=== PATIENT | male | born 1965 | race Caucasian/White ===

== ENCOUNTER → 2019-09-17 | Outpatient (CLI) | payer BC, SELFPAY | PROVIDERS: Visit Provider Emergency Medicine | DX: R51 Headache (principal); G40.909 Epilepsy, unspecified, not intractable, without status epilepticus | CPT/HCPCS: 95816 ==

== ENCOUNTER 2020-01-17 06:57 | Outpatient (CLI) | payer BC, SELFPAY ==
[2020-01-17 08:44] LABS: Hemoglobin A1C 5.9 % (<5.7)
[2020-01-17 08:58] LABS: Alanine Aminotransferase 37 U/L (4-50); Albumin Level 4.1 g/dL (3.5-5.1); Alkaline Phosphatase 65 U/L (38-126); Aspartate Amino Transferase 27 U/L (17-59); Bilirubin,Total 0.4 mg/dL (0.2-1.3); Blood Urea Nitrogen 22 mg/dL (9-20); Calcium 9.1 mg/dL (8.4-10.2); Carbon Dioxide 30 mmol/L (22-30); Chloride 101 mmol/L (98-107); Estimated Glomerular Filt Rate > 60; Glucose 103 mg/dL (75-110); Potassium 4.2 mmol/L (3.4-5.0); Sodium 142 mmol/L (137-145)
[2020-01-17 09:25] LABS: Free T4 Free Thyroxine 1.08 ng/mL (0.78-2.19)
[2020-01-21 04:49] LABS: Insulin Level Total 4.2 uIU/mL (<=19.6); Thyroid Peroxidase Antibodies <1 IU/mL (<9)
[2020-01-22 13:08] LABS: Triiodothyronine T3 Free 2.7 pg/mL (2.3-4.2)
== END 2020-01-17 06:58 | disposition home or self-care (01) ==
PROVIDERS: PCP Emergency Medicine; Visit Provider Internal Medicine Endocrinology, Diabetes & Metabolism
DX: R73.01 Impaired fasting glucose (principal); R53.83 Other fatigue
CPT/HCPCS: 36415; 80053; 83036; 83525; 84439; 84443; 84481; 86376

== ENCOUNTER 2020-02-25 07:35 | Outpatient (CLI) | payer BC, SELFPAY ==
--- NOTE | 2020-02-25 | ECHO_ITS ---
Patient Info Name: Eduar Richardson Age: 55 years : 1965 Gender: Male Ht: 72 in Wt: 190 lbs BSA: 2.10 m2 HR: 62 bpm BP: 116 / 75 mmHg Technical Quality: Good Exam Date: 02/25/2020 7:59 AM Exam Location: [facility] Patient Status: Outpatient Admit Date: 02/25/2020 Staff Ordering Physician: Ivan Childress MD Construction Secretary: Paolo Martinez RDCS, RT Attending Provider: Ivan Childress MD Referring Physician: Monroe VASQUEZ; Exam Type: CA echo doppler color flow Study Info Indications G45.9 - Transient cerebral ischemic attack, unspecified Complete two-dimensional, color flow and Doppler transthoracic echocardiogram is performed. Summary 1. Left ventricular chamber dimension is normal. 2. Left ventricular systolic function is normal, estimated at 60-65%. 3. The left ventricular diastolic function is normal. 4. E/e' 5 is not elevated. 5. Global longitudinal strain is normal at -18.4%. 6. There is mild mitral valve regurgitation. 7. There is trace tricuspid valve regurgitation. 8. No pulmonary hypertension, estimated pulmonary arterial systolic pressure is 28 mmHg. Left Ventricle E/e' 5 is not elevated. Global longitudinal strain is normal at -18.4%. Left ventricular chamber dimension is normal. Left ventricular systolic function is normal, estimated at 60-65%. The left ventricular diastolic function is normal. Right Ventricle Right ventricular chamber dimension is normal. Right ventricular systolic function is normal. Left Atria Left atrial chamber dimension is normal. Right Atria Right atrial chamber dimension is normal. Aortic Valve The aortic valve is trileaflet. There is no aortic valve stenosis. There is no aortic valve regurgitation. Pulmonic Valve There is no pulmonic regurgitation. Mitral Valve There is no mitral valve stenosis. There is mild mitral valve regurgitation. Tricuspid Valve There is trace tricuspid valve regurgitation. No pulmonary hypertension, estimated pulmonary arterial systolic pressure is 28 mmHg. Pericardium/Pleural There is no pericardial effusion. Inferior Vena Cava Normal inferior vena cava with >50% collapse upon inspiration consistent with normal right atrial pressure, 5 mmHg. Aorta The aortic root size at the sinus of Valsalva is normal. Left Ventricular Outflow Tract Name Value Normal LVOT 2D LVOT Diameter 2.1 cm LVOT Doppler LVOT Peak Gradient 4 mmHg LVOT Mean Gradient 2 mmHg LVOT VTI 21 cm LVOT VTI/AV VTI Ratio 0.9 LVOT Stroke Volume 74 ml LVOT CO 4.2 l/min LVOT CI 2.0 l/min/m2 Pulmonic Valve Name Value Normal PV Doppler PV Peak Gradient 2 mm
== END 2020-02-25 07:36 | disposition home or self-care (01) ==
LOC: ANHCARD 07:37
PROVIDERS: PCP Emergency Medicine; Visit Provider Emergency Medicine
DX: G45.9 Transient cerebral ischemic attack, unspecified (principal)
CPT/HCPCS: 93306

== ENCOUNTER → 2020-03-03 09:05 | Outpatient (CLI) | payer BC, SELFPAY ==
--- NOTE | ~2020-03-03 | CT_ITS ---
EXAMINATION: CTA brain carotid EXAM DATE: 03/03/2020 10:16 INDICATION: Episode of memory loss, right arm paresthesia continued for about an hour, transient. Carlos rred vision during episode. TECHNIQUE: Noncontrast head CT. Spiral CTA of the carotid arteries was performed with intravenous i njection 100 cc of Omnipaque 350. Axial, coronal, sagittal reformatted images reviewed. Additional r eformatted images created on dedicated 3-D workstation. NASCET comparable standard used to assess th e degree of arterial stenosis. Spiral CT angiogram cerebral arteries performed with the same intrave nous injection of contrast. Source images of the brain CTA transferred to dedicated workstation for 3 -D rotational image creation. Coronal, sagittal maximum intensity pixel images also reviewed. The d ose-length product (DLP) for this examination was 1245.70 mGy-cm. The exposure was tailored accordi ng to patient size, and iterative reconstruction (ASIR) was used as additional dose reduction techniq ue. Correlation is made to brain MRI 09/15/2019. FINDINGS: The common carotid and internal carotid arteries are normal, no plaque or stenosis. The rig ht vertebral artery is dominant. There is no carotid or vertebral basilar arterial dissection or fib romuscular dysplasia. There are no cerebral artery aneurysms. There is symmetric cerebral artery arbo rization. The sagittal, transverse and sigmoid sinuses enhance normally, no venous sinus thrombosis. Internal cerebral veins also enhance normally. There is no acute intraparenchymal hemorrhage. No evidence of intraparenchymal brain mass lesion. N o evidence of acute infarction. There is no mass effect or midline shift. There is no obstructive hyd rocephalus suspected. There are no extra-axial collections. There are no calvarial acute fractures. IMPRESSION: 1. No carotid stenosis or acute findings. Reviewed, dictated and finalized at location B.
[2020-03-03 09:28] LABS: Estimated Glomerular Filt Rate > 60
== END ==
PROVIDERS: PCP Emergency Medicine; Visit Provider Psychiatry & Neurology Neurology
DX: G45.9 Transient cerebral ischemic attack, unspecified (principal)
CPT/HCPCS: 36415; 70496; 70498; Q9967

== ENCOUNTER 2020-04-23 14:28 | Outpatient (CLI) | payer BC, SELFPAY ==
[2020-04-25 23:59] LABS: Arsenic, Blood <3 mcg/L (<23); Lead, Blood 3 mcg/dL (<5); Mercury, Blood <4 mcg/L (<=10)
[2020-04-28 08:33] LABS: Collection Sample Venous
== END 2020-04-23 14:29 | disposition home or self-care (01) ==
PROVIDERS: PCP Emergency Medicine
DX: Z57.5 Occupational exposure to toxic agents in other industries (principal)
CPT/HCPCS: 36415; 82175; 83655; 83825

== ENCOUNTER 2020-08-12 06:13 | Emergency (ER) | payer BC, SELFPAY ==
--- NOTE | ~2020-08-12 | CT_ITS ---
EXAMINATION: CT brain wo con EXAM DATE: 08/12/2020 06:35 INDICATION: Hand numbness. Headache. Blurry vision. TECHNIQUE: Spiral CT of the head was performed without contrast. Axial, coronal and sagittal images were reviewed. The dose-length product (DLP) for this examination was 605.33 mGy-cm. The exposure w as tailored according to patient size, and iterative reconstruction (ASIR) was used as additional dos e reduction technique. Comparison is made to prior examination from 03/03/2020. FINDINGS: There is no acute intraparenchymal hemorrhage. No evidence of intraparenchymal brain mass lesion. No evidence of acute infarction. There is no mass effect or midline shift. The ventricles are normal in size. There are no extra-axial collections. There are no acute calvarial fractures. T he orbits are unremarkable. Soft tissue is unremarkable. The visualized sinuses and mastoid air nora ls are well aerated. There is no significant interval change. IMPRESSION: 1. No acute intracranial findings. Reviewed, dictated and finalized at location A.
--- NOTE | ~2020-08-12 | XR_ITS ---
EXAMINATION: XR chest 2V EXAM DATE: 08/12/2020 06:38 INDICATION: Stroke protocol. Right hand numbness, left foot numbness. TECHNIQUE: Frontal and lateral projections of the chest obtained and reviewed. Comparison is made to prior examination from 06/20/2010. FINDINGS: The lungs are clear. There are no pleural effusions. The cardiomediastinal silhouette is within normal limits. There is no pneumothorax suspected. The bones and soft tissues are unremarkab le. IMPRESSION: No acute cardiopulmonary findings. Reviewed, dictated and finalized at location A.
[2020-08-12 06:16] VITALS: BP 138/88; PULSE 81; RESP 20; TEMP 36.6; O2SAT 98
--- NOTE | 2020-08-12 06:18 | ECG_ITS ---
Measurements Intervals [place] Rate: 71 P: 33 FL: 162 QRS: 18 QRSD: 94 T: 6 QT: 379 QTc: 414 Interpretive Statements SINUS RHYTHM NORMAL ECG Electronically Signed On 08-12-2020 9:58:39 CDT by Jairo Guillory D.O.
--- NOTE | 2020-08-12 06:18 | ED.NEUROSD ---
HPI - Neuro Symptoms/Deficit General Chief Complaint: Neuro Symptoms/Deficit <Rachel Batista MD - Last Filed: 08/12/20 07:21> Stated Complaint: left foot and right hand numbness <Rachel Batista MD - Last Filed: 08/12/20 07:21> Time Seen by Provider: 08/12/20 06:18 <Rachel Batista MD - Last Filed: 08/12/20 07:21> Source: patient <Rachel Batista MD - Last Filed: 08/12/20 07:21> Mode of arrival: ambulatory <Rachel Batista MD - Last Filed: 08/12/20 07:21> Limitations: no limitations <Rachel Batista MD - Last Filed: 08/12/20 07:21> History of Present Illness HPI Narrative: Patient is a 55-year-old male with a history of paresthesia who presents for evaluation of mild frontal headache and concurrent right hand tingling and left foot tingling. Patient states symptoms began approximately 2 hours ago. Patient awakened and had 2 cups of coffee, then began to feel tingling in his right hand and left foot. Patient denies any weakness in these extremities. No difficulty walking. No difficulty with speech, no facial droop or drooling. Patient states in the past he has been diagnosed with paresthesia and has had negative work-ups for stroke with similar presenting symptoms. Patient has followed once with a neurologist and was told that there was nothing wrong. Patient denies any nausea or vomiting. No dizziness or lightheadedness. No chest pain or shortness of breath. <Rachel Batista MD - Last Filed: 08/12/20 07:21> Related Data Allergies/Adverse Reactions: Allergies Allergy/AdvReac Type Severity Reaction Status Date / Time No Known Allergies Allergy Unknown Verified 06/28/10 08:14 <Rachel Batista MD - Last Filed: 08/12/20 07:21> Review of Systems Review of Systems: Narrative: CONSTITUTIONAL: Denies fever, chills, or sweats. EYES: Denies current visual changes, redness, or discharge. ENT: Denies rhinorrhea, congestion CARDIOVASCULAR: Denies chest pain RESPIRATORY: Denies cough or dyspnea. GASTROINTESTINAL: Denies abdominal pain, nausea, vomiting, or diarrhea. GENITOURINARY: Denies dysuria or hematuria. SKIN: Denies rash or itching. MUSCULOSKELETAL: Denies back pain, joint pain, or myalgia. NEUROLOGIC: Denies headache, weakness, reports tingling in his right hand and left foot <Rachel Batista MD - Last Filed: 08/12/20 07:21> [facility] Past Medical History Medical History: Medical History H/O testicular mass Paresthesia <Rachel Batista MD - Last Filed: 08/12/20 07:21> Surgical History Surgical History: Surgical History (Updated 08/12/20 @ 06:32 by Rachel Batista MD) H/O inguinal hernia repair <Rachel Batista MD - Last Filed: 08/12/20 07:21> Social History Social History: Social History (Updated 08/12/20 @ 06:33 by Rahcel Batista MD) Smoking status: Current some day smoker Tobacco type: cigars Alcohol intake: current Alcohol use details: Social Living arrangements: with family Gender identity (if verbalized by the patient): Male <Rachel Batista MD - Last Filed: 08/12/20 07:21> Exam Narrative: Exam Narrative: GENERAL: Awake, alert, conversant HEAD: Normocephalic, atraumatic. EYES: PERRLA and EOMI. ENT: Nares clear, no rhinorrhea or epistaxis. Mucous membranes moist. NECK: Supple. CHEST: No respiratory distress, breathing even and non labored HEART: Regular rate, sinus rhythm ABDOMEN:Non distended, non tender EXTREMITIES: Normal range of motion. No edema. SKIN: Warm, dry, no rash. NEURO:No focal deficits. Alert and oriented x3. Finger to nose intact bilaterally. EOMs intact without nystagmus. No facial droop/asymmetry noted bilaterally. Grimace intact. Intact sensation in face. Hearing intact bilaterally. Shoulder shrug intact. Strength 5/5 bilateral upper extremities. Strength 5/5 bilateral lower extremities. Reflexes 2+ patellar. Heel to perez inta
[2020-08-12 06:42] VITALS: BP 130/81; PULSE 77; RESP 21; O2SAT 98
[2020-08-12] MEDS: ACETAMINOPHEN 500 MG TABLET 1000 MG PO (06:47)
[2020-08-12] MEDS: SODIUM CHLORIDE 0.9% IV 500 ML 999 ML IV CONT (06:47)
[2020-08-12 07:03] LABS: Add Urine Microscopic? NO; Appearance Urine Clear (Clear); Bilirubin Urine Negative (Negative); Blood Urine Negative (Negative); Color Urine Straw (Yellow); Glucose Urine UA Negative (Negative); Ketones Urine Negative (Negative); Leukocyte Esterase Ur Negative LEU/UL (Negative); Nitrate Urine Negative (Negative); Protein Urine Negative (Negative); Specific Grav Ur 1.017 (1.001-1.035); Urobilinogen Urine Negative mg/dL (<2.0)
[2020-08-12 07:12] LABS: Basophils Absolute Auto 0.1 K/mm3 (0.0-0.1); Basophils Percent Auto 0.8 % (0.2-1.2); Eosinophils Absolute Auto 0.2 K/mm3 (0-0.3); Eosinophils Percent Auto 2.4 % (0-4.4); Hemoglobin 14.5 g/dL (14.0-18.0); Immature Granulocyte Absolute 0.03 K/mm3 (0.00-0.031); Immature Granulocyte Percent A 0.5 % (0-0.5); Lymphocytes Absolute Auto 1.57 K/mm3 (0.9-3.2); Lymphocytes Percent Auto 24.7 % (18.3-44.2); Mean Corpuscular HGB Conc 32.2 g/dl (32-36); Mean Corpuscular Hemoglobin 30.2 pg (26-34); Mean Corpuscular Volume 93.8 fl (80-100); Mean Platelet Volume 11.7 fl (7.4-10.4); Monocytes Absolute Auto 0.4 K/mm3 (0.1-0.6); Monocytes Percent Auto 6.6 % (2.6-8.5); Neutrophils Absolute Auto 4.1 K/mm3 (1.3-6.7); Platelet Count Result 281 k/mm3 (150-375); Red Cell Distribution Width 13.1 % (11.5-14.5); White Blood Count 6.4 K/mm3 (4.5-10.0)
[2020-08-12 07:25] LABS: Anion Gap 5 mmol/L (8-16); Blood Urea Nitrogen 21 mg/dL (9-20); Calcium 9.3 mg/dL (8.4-10.2); Carbon Dioxide 30 mmol/L (22-30); Chloride 102 mmol/L (98-107); Estimated CRCL calculation 73 ml/min; Estimated Glomerular Filt Rate > 60; Glucose 110 mg/dL (75-110); Potassium 4.1 mmol/L (3.4-5.0); Sodium 137 mmol/L (137-145)
[2020-08-12 07:31] VITALS: BP 129/86; PULSE 70; RESP 18; O2SAT 95
[2020-08-12 07:35] LABS: INR 0.9; Prothrombin Time 12.1 Seconds (11.1-14.7)
[2020-08-12 07:36] LABS: Troponin I < 0.012 ng/mL (0.000-0.034)
[2020-08-12 07:43] LABS: Partial Thromboplastin Time 27.8 SECONDS (22.3-36.8)
[2020-08-12 08:01] VITALS: BP 130/84; PULSE 85; RESP 20; O2SAT 99
== END 2020-08-12 08:04 | disposition home or self-care (01) ==
PROVIDERS: Emergency Provider Emergency Medicine; PCP Emergency Medicine
DX: R20.2 Paresthesia of skin (principal); F17.290 Nicotine dependence, other tobacco product, uncomplicated
CPT/HCPCS: 36415; 70450; 71046; 80048; 81003; 82948; 84484; 85025; 85610; 85730; 93005; 96360; 99284; A9270; J7040

== ENCOUNTER 2021-04-29 06:53 | Outpatient (CLI) | payer BC, SELFPAY ==
[2021-04-29 07:43] LABS: Basophils Absolute Auto 0.1 K/mm3 (0.0-0.1); Basophils Percent Auto 0.7 % (0.2-1.2); Eosinophils Absolute Auto 0.2 K/mm3 (0-0.3); Eosinophils Percent Auto 2.5 % (0-4.4); Hematocrit 43.3 % (42.0-52.0); Hemoglobin 14.1 g/dL (14.0-18.0); Immature Granulocyte Absolute 0.03 K/mm3 (0.00-0.031); Immature Granulocyte Percent A 0.4 % (0-0.5); Lymphocytes Absolute Auto 1.75 K/mm3 (0.9-3.2); Lymphocytes Percent Auto 25.9 % (18.3-44.2); Mean Corpuscular HGB Conc 32.6 g/dl (32-36); Mean Corpuscular Volume 92.1 fl (80-100); Mean Platelet Volume 10.9 fl (7.4-10.4); Monocytes Absolute Auto 0.5 K/mm3 (0.1-0.6); Monocytes Percent Auto 7.7 % (2.6-8.5); Neutrophils Absolute Auto 4.2 K/mm3 (1.3-6.7); Neutrophils Percent Auto 62.8 % (45.5-73.1); Platelet Count Result 274 k/mm3 (150-375); Red Cell Distribution Width 13.2 % (11.5-14.5); White Blood Count 6.8 K/mm3 (4.5-10.0)
[2021-04-29 07:49] LABS: Alanine Aminotransferase 23 U/L (4-50); Albumin Level 3.9 g/dL (3.5-5.1); Alkaline Phosphatase 51 U/L (38-126); Anion Gap 7 mmol/L (8-16); Aspartate Amino Transferase 24 U/L (17-59); Bilirubin,Total 0.3 mg/dL (0.2-1.3); Blood Urea Nitrogen 22 mg/dL (9-20); Calcium 9.4 mg/dL (8.4-10.2); Carbon Dioxide 29 mmol/L (22-30); Chloride 105 mmol/L (98-107); Cholesterol 169 mg/dL (0-200); Estimated Glomerular Filt Rate > 60; Glucose 106 mg/dL (75-110); HDL Direct 45 mg/dL; Magnesium 1.8 mg/dL (1.6-2.3); Phosphorus 3.3 mg/dL (2.5-4.5); Potassium 4.2 mmol/L (3.4-5.0); Sodium 141 mmol/L (137-145); Triglycerides 61 mg/dL (<150)
[2021-04-29 08:00] LABS: LDL Cholesterol Direct 78 mg/dL
[2021-04-29 09:02] LABS: Add Urine Microscopic? NO; Appearance Urine Clear (Clear); Bilirubin Urine Negative (Negative); Blood Urine Negative (Negative); Color Urine Yellow (Yellow); Glucose Urine UA Negative (Negative); Ketones Urine Negative (Negative); Leukocyte Esterase Ur Negative LEU/UL (Negative); Nitrate Urine Negative (Negative); Protein Urine Negative (Negative); Specific Grav Ur 1.024 (1.001-1.035); Urobilinogen Urine Negative mg/dL (<2.0)
== END 2021-04-29 06:54 | disposition home or self-care (01) ==
PROVIDERS: PCP Emergency Medicine; Visit Provider Emergency Medicine
DX: F41.1 Generalized anxiety disorder (principal); G45.9 Transient cerebral ischemic attack, unspecified; K22.70 Barrett's esophagus without dysplasia; R97.20 Elevated prostate specific antigen [PSA]
CPT/HCPCS: 36415; 80061; 80069; 80076; 81003; 82607; 82746; 83735; 84153; 84443; 85025

== ENCOUNTER → 2022-08-16 15:13 | Outpatient (CLI) | payer BC, SELFPAY ==
--- NOTE | ~2022-08-16 | CT_ITS ---
EXAMINATION: CT sinus wo con DATE: 08/16/2022 15:41 INDICATION: Chronic sinusitis TECHNIQUE: Computed tomography (CT) of the paranasal sinuses was performed without intravenous contra st. The dose-length product was 288.85 mGy-cm. Automated exposure control and iterative reconstructio n technique were employed. COMPARISON: No prior studies for comparison. FINDINGS: There is extensive mucosal thickening of the sinuses including the frontal, ethmoid, spheno id and maxillary sinuses. There is an air-fluid level in the right maxillary sinus. There are bilater al mastoid effusions. There is leftward nasal septal deviation. Ostiomeatal units are occluded by sof t tissue. There is curvature of the nasal septum. IMPRESSION: 1. Pansinusitis with air-fluid level in the right maxillary sinus. Reviewed, dictated and finalized at location A.
== END ==
PROVIDERS: PCP Emergency Medicine; Visit Provider Emergency Medicine
DX: J32.4 Chronic pansinusitis (principal)
CPT/HCPCS: 70486

== ENCOUNTER 2023-01-13 06:46 | Outpatient (CLI) | payer BC, SELFPAY ==
[2023-01-13 07:29] LABS: Cholesterol 190 mg/dL (0-200); HDL Direct 47 mg/dL; Triglycerides 60 mg/dL (<150)
[2023-01-13 07:40] LABS: Hemoglobin A1C 5.7 % (<5.7); LDL Cholesterol Direct 106 mg/dL
[2023-01-13 07:41] LABS: Parathyroid Intact 40.9 pg/mL (7.5-53.5)
[2023-01-13 08:24] LABS: Free T4 Free Thyroxine 1.17 ng/mL (0.78-2.19)
[2023-01-16 13:23] LABS: Insulin Level Total 3.7 uIU/mL (<=19.6)
== END 2023-01-13 06:47 | disposition home or self-care (01) ==
PROVIDERS: PCP Emergency Medicine; Visit Provider Internal Medicine Endocrinology, Diabetes & Metabolism
DX: R73.03 Prediabetes (principal); Z13.220 Encounter for screening for lipoid disorders
CPT/HCPCS: 36415; 80061; 83036; 83525; 83970; 84439; 84443

== ENCOUNTER 2023-06-01 06:54 | Outpatient (CLI) | payer BC, SELFPAY ==
[2023-06-01 07:24] LABS: Basophils Absolute Auto 0.1 K/mm3 (0.0-0.1); Basophils Percent Auto 1.2 % (0.2-1.2); Eosinophils Absolute Auto 0.4 K/mm3 (0-0.3); Eosinophils Percent Auto 6.1 % (0-4.4); Hemoglobin 13.1 g/dL (14.0-18.0); Immature Granulocyte Absolute 0.01 K/mm3 (0.00-0.031); Immature Granulocyte Percent A 0.1 % (0-0.5); Lymphocytes Absolute Auto 1.64 K/mm3 (0.9-3.2); Lymphocytes Percent Auto 24.5 % (18.3-44.2); Mean Corpuscular Hemoglobin 29.8 pg (26-34); Mean Corpuscular Volume 93.2 fl (80-100); Mean Platelet Volume 10.8 fl (7.4-10.4); Monocytes Absolute Auto 0.5 K/mm3 (0.1-0.6); Neutrophils Absolute Auto 4.1 K/mm3 (1.3-6.7); Neutrophils Percent Auto 61.1 % (45.5-73.1); Platelet Count Result 271 k/mm3 (150-375); Red Cell Distribution Width 13.7 % (11.5-14.5); White Blood Count 6.7 K/mm3 (4.5-10.0)
[2023-06-01 07:34] LABS: Alanine Aminotransferase 25 U/L (6-50); Albumin Level 3.9 g/dL (3.5-5.1); Alkaline Phosphatase 55 U/L (38-126); Anion Gap 4 mmol/L (8-16); Aspartate Amino Transferase 25 U/L (17-59); Bilirubin,Total 0.3 mg/dL (0.2-1.3); Blood Urea Nitrogen 26 mg/dL (9-20); Calcium 8.7 mg/dL (8.4-10.2); Carbon Dioxide 29 mmol/L (22-30); Chloride 104 mmol/L (98-107); Cholesterol 177 mg/dL (0-200); Estimated Glomerular Filt Rate > 60; Glucose 114 mg/dL (65-110); HDL Direct 44 mg/dL; Phosphorus 3.2 mg/dL (2.5-4.5); Potassium 4.2 mmol/L (3.4-5.0); Sodium 137 mmol/L (137-145); Triglycerides 66 mg/dL (<150)
[2023-06-01 07:45] LABS: LDL Cholesterol Direct 99 mg/dL
[2023-06-06 07:14] LABS: Alphahydroxymidazolam NEGATIVE ng/mL (<50); Alphahydroxytriazolam NEGATIVE ng/mL (<50); Amphetamines NEGATIVE ng/mL (<500); Barbiturates NEGATIVE ng/mL (<300); Benzodiazepines POSITIVE ng/mL (<100); Cocaine Metabolite NEGATIVE ng/mL (<100); Codeine NEGATIVE ng/mL (<50); Hydrocodone 170 ng/mL (<50); Hydromorphone 80 ng/mL (<50); Hydroxyethylflurazepam NEGATIVE ng/mL (<50); Lorazepam NEGATIVE ng/mL (<50); Marijuana Metabolite 17 ng/mL (<5); Methadone Metabolite NEGATIVE ng/mL (<100); Morphine NEGATIVE ng/mL (<50); Norhydrocodone 310 ng/mL (<50); Opiates POSITIVE ng/mL (<100); Oxidant NEGATIVE mcg/mL (<200); Temazepam NEGATIVE ng/mL (<50); pH 5.5 (4.5-9.0)
== END 2023-06-01 06:55 | disposition home or self-care (01) ==
PROVIDERS: PCP Emergency Medicine; Visit Provider Emergency Medicine
DX: F41.1 Generalized anxiety disorder (principal); G89.4 Chronic pain syndrome; J32.9 Chronic sinusitis, unspecified; K22.70 Barrett's esophagus without dysplasia; R97.20 Elevated prostate specific antigen [PSA]; Z79.899 Other long term (current) drug therapy; Z00.01 Encounter for general adult medical examination with abnormal findings
CPT/HCPCS: 36415; 80061; 80069; 80076; 80299; 84443; 85025

== ENCOUNTER 2023-06-16 07:17 | Outpatient (CLI) | payer BC, SELFPAY ==
[2023-06-16 09:00] LABS: Glucose 100 mg/dL (65-110)
[2023-06-16 09:09] LABS: Iron 126 ug/dL (49-181)
[2023-06-16 09:17] LABS: Hematocrit 42.9 % (42.0-52.0); Hemoglobin 13.8 g/dL (14.0-18.0); Mean Corpuscular HGB Conc 32.2 g/dl (32-36); Mean Corpuscular Hemoglobin 29.9 pg (26-34); Mean Corpuscular Volume 92.9 fl (80-100); Mean Platelet Volume 11.9 fl (7.4-10.4); Platelet Count Result 273 k/mm3 (150-375); Red Blood Count 4.62 M/mm3 (4.6-6.20); Red Cell Distribution Width 13.5 % (11.5-14.5); White Blood Count 6.4 K/mm3 (4.5-10.0)
[2023-06-16 09:18] LABS: Percent Iron Saturation 32 % (20-50)
[2023-06-16 09:53] LABS: Appearance Urine Clear (Clear); Bilirubin Urine Negative (Negative); Blood Urine Negative (Negative); Color Urine Yellow (Yellow); Glucose Urine UA Negative (Negative); Ketones Urine Negative (Negative); Leukocyte Esterase Ur Negative LEU/UL (Negative); Nitrate Urine Negative (Negative); Protein Urine Negative (Negative); Specific Grav Ur 1.015 (1.001-1.035); Urobilinogen Urine 0.2 mg/dL (<2.0); pH Urine 5.5 (5.0-9.0)
[2023-06-16 10:07] LABS: Folic Acid 8.8 ng/mL (2.76->20)
[2023-06-16 11:10] LABS: Hemoglobin A1C 5.7 % (<5.7)
[2023-06-16 12:10] LABS: Add Urine Microscopic? NO
== END 2023-06-16 07:18 | disposition home or self-care (01) ==
PROVIDERS: PCP Emergency Medicine; Visit Provider Emergency Medicine
DX: D64.9 Anemia, unspecified (principal); R73.9 Hyperglycemia, unspecified; Z79.899 Other long term (current) drug therapy
CPT/HCPCS: 36415; 81003; 82607; 82728; 82746; 82947; 83036; 83540; 83550; 83735; 85027

== ENCOUNTER 2023-08-10 07:37 | Outpatient (CLI) | payer BC, SELFPAY ==
[2023-08-10 08:36] LABS: Hemoglobin A1C 5.6 % (<5.7)
[2023-08-10 09:01] LABS: Free T4 Free Thyroxine 1.25 ng/mL (0.78-2.19)
[2023-08-10 09:31] LABS: Folic Acid 12.9 ng/mL (2.76->20); Vitamin B12 > 1000.0 pg/mL (239-931)
[2023-08-14 15:43] LABS: Insulin Level Total 2.7 uIU/mL (<=19.6)
== END 2023-08-10 07:38 | disposition home or self-care (01) ==
LOC: ANHLAB 07:39
PROVIDERS: PCP Emergency Medicine; Visit Provider Internal Medicine Endocrinology, Diabetes & Metabolism
DX: R73.03 Prediabetes (principal); E53.8 Deficiency of other specified B group vitamins
CPT/HCPCS: 36415; 82607; 82746; 83036; 83525; 84439; 84443

== ENCOUNTER 2024-12-04 07:14 | Outpatient (CLI) | payer BC, SELFPAY ==
[2024-12-04 07:42] LABS: Basophils Absolute Auto 0.1 K/mm3 (0.0-0.1); Basophils Percent Auto 0.9 % (0.2-1.2); Eosinophils Absolute Auto 0.3 K/mm3 (0-0.3); Eosinophils Percent Auto 3.4 % (0-4.4); Hematocrit 40.5 % (42.0-52.0); Hemoglobin 12.5 g/dL (14.0-18.0); Immature Granulocyte Absolute 0.02 K/mm3 (0.00-0.031); Immature Granulocyte Percent A 0.3 % (0-0.5); Lymphocytes Absolute Auto 1.88 K/mm3 (0.9-3.2); Mean Corpuscular HGB Conc 30.9 g/dl (32-36); Mean Corpuscular Hemoglobin 27.6 pg (26-34); Mean Corpuscular Volume 89.4 fl (80-100); Mean Platelet Volume 10.6 fl (7.4-10.4); Monocytes Absolute Auto 0.5 K/mm3 (0.1-0.6); Monocytes Percent Auto 6.6 % (2.6-8.5); Neutrophils Absolute Auto 5.1 K/mm3 (1.3-6.7); Neutrophils Percent Auto 64.8 % (45.5-73.1); Platelet Count Result 310 k/mm3 (150-375); Red Blood Count 4.53 M/mm3 (4.6-6.20); Red Cell Distribution Width 13.9 % (11.5-14.5); White Blood Count 7.8 K/mm3 (4.5-10.0)
[2024-12-04 08:02] LABS: Alanine Aminotransferase 20 U/L (6-50); Alkaline Phosphatase 56 U/L (38-126); Anion Gap 2 mmol/L (4-12); Aspartate Amino Transferase 23 U/L (17-59); Bilirubin,Total 0.4 mg/dL (0.2-1.3); Blood Urea Nitrogen 20 mg/dL (9-20); Calcium 9.6 mg/dL (8.4-10.2); Carbon Dioxide 32 mmol/L (22-30); Chloride 104 mmol/L (98-107); Cholesterol 203 mg/dL (0-200); Estimated Glomerular Filt Rate > 60; Glucose 111 mg/dL (65-110); HDL Direct 56 mg/dL; Magnesium 1.9 mg/dL (1.6-2.3); Phosphorus 3.3 mg/dL (2.5-4.5); Potassium 4.2 mmol/L (3.4-5.0); Sodium 138 mmol/L (137-145); Triglycerides 72 mg/dL (<150)
[2024-12-04 08:13] LABS: LDL Cholesterol Direct 110 mg/dL
[2024-12-04 08:20] LABS: Iron 55 ug/dL (49-181)
[2024-12-04 08:29] LABS: Percent Iron Saturation 13 % (20-50)
[2024-12-04 08:55] LABS: Ferritin 9.67 ng/mL (11.1-264)
[2024-12-04 09:07] LABS: Vitamin B12 > 1000.0 pg/mL (239-931)
== END 2024-12-04 07:15 | disposition home or self-care (01) ==
PROVIDERS: PCP Emergency Medicine; Visit Provider Emergency Medicine
DX: Z00.01 Encounter for general adult medical examination with abnormal findings (principal); F41.1 Generalized anxiety disorder; G89.4 Chronic pain syndrome; I10 Essential (primary) hypertension; K22.70 Barrett's esophagus without dysplasia; K91.1 Postgastric surgery syndromes; R97.20 Elevated prostate specific antigen [PSA]; D64.9 Anemia, unspecified
CPT/HCPCS: 36415; 80061; 80069; 80076; 82607; 82728; 82746; 83540; 83550; 83735; 84443; 85025

== ENCOUNTER 2025-01-19 11:52 | Outpatient (CLI) | payer BC, SELFPAY ==
--- NOTE | ~2025-01-19 | CT_ITS ---
EXAMINATION: CT abdomen pelvis wo con DATE: 01/19/2025 12:19 INDICATION: Hydronephrosis TECHNIQUE: Computed tomography (CT) of the abdomen and pelvis was performed without intravenous contr ast. Automated exposure control and iterative reconstruction technique were employed. The dose-length product was 678.34 mGy-cm. COMPARISON: None FINDINGS: Mild discoid atelectasis in the bilateral lower lungs. A couple calcified nodules in the left lower l obe and small splenic calcification consistent with old granulomatous disease. Noncalcified 4 mm righ t middle lobe nodule. Heart size is normal. No pericardial or pleural effusion. Small sliding-type hi atal hernia. Liver, gallbladder, pancreas and bilateral adrenal glands are normal. 8 mm hyperdense proteinaceous/hemorrhagic cyst at the upper pole of the left kidney. 2 mm nonobstruct ing stone at a lower pole calyx of the left kidney. Small cluster of 3, 1-2 mm calcifications at the periphery of a subcentimeter exophytic lesion anteriorly at the upper pole of the left kidney most li precious an additional cyst but too small to definitively characterize. There is moderate left hydrourete ronephrosis which extends to the ureterovesicular junction without evident obstructing stone or mass. There are multiple bladder diverticulum including a large right-sided diverticulum which is larger t todd the [place] bladder measuring up to 18.7 x 15.2 at 10.1 cm. The distal right ureter extends in air space between the bladder and the bladder diverticulum which likely results in some compression and i s partial obstruction of the distal right ureter. Prostatomegaly measuring 4.5 x 4.1 cm. Small bilateral fat-containing inguinal hernias. There are few scattered clonic diverticula without adjacent from trace stranding to suggest diverticular colitis. Small bowel and appendix are normal. No free intraperitoneal gas or fluid. No pathologically enlarged abdominal or pelvic lymphadenopathy. Mild lumbar and lower thoracic spondylosis. Likely benign 10 mm sclerotic lesion in the L4 vertebral body which is of lower density than typical for a bone island b ut which has remained unchanged since lumbar spine CT dated 02/20/2011 and which was without abnormal uptake on bone scan dated 02/27/2011. IMPRESSION: 1. Moderate right hydroureteronephrosis without evident distal obstructing stone or mass. This likely related to extrinsic compression of the distal right ureter which passes between the bladder and a r ight-sided bladder diverticulum which is larger than the [place] bladder. 2. A few additional smaller bladder diverticula which could be related to chronic outlet obstruction from the enlarged prostate. 3. Nonobstructing left nephrolithiasis. 4. Indeterminate 4 mm right middle lobe nodule. If the patient is low risk for lung cancer, no follow -up is needed. If the patient is high risk (i.e., history of smoking or asbestos or significant radia tion exposure), optional follow-up chest CT could be considered at 12 months. Reviewed, dictated and finalized at location [facility] IMPRESSION: 1. Moderate right hydroureteronephrosis without evident distal obstructing ston e or mass. This likely related to extrinsic compression of the distal right ure ter which passes between the bladder and a right-sided bladder diverticulum whi ch is larger than the [place] bladder. 2. A few additional smaller bladder diverticula which could be related to chron ic outlet obstruction from the enlarged prostate. 3. Nonobstructing left nephrolithiasis. 4. Indeterminate 4 mm right middle lobe nodule. If the patient is low risk for lung cancer, no follow-up is needed. If the patient is high risk (i.e., history of smoking or asbestos or significant radiation exposure), optional follow-up chest CT could be considered at 12 months.
--- OUTSIDE RECORDS SUMMARY | 2025-01-19 13:41 | XMS_ITS | Continuity of Care Document ---
Author Organization [facility] Address [address] [place] [address] [place] [address] Phone Care Team Providers [employer] Name Role Phone Ivan Childress MD Unavailable Unavailable Allergies, Adverse Reactions, Alerts Substance Reaction Status Criticality metronidazole Active No Information Medications Medication Instructions Dosage Effective Dates (start - stop) Status Comments Xanax 1 mg tablet take 1 tablet by oral route every 4 - 6 hours as needed 1 MG - Active PRN for anxiety, avoid driving or operate machines hydrocodone 5 mg-acetaminophen 325 mg tablet take 1 tablet by oral route every 6 hours as needed for pain as needed 1.00 tablet - Active PRN for pain, avoid driving or operate machines omeprazole 20 mg capsule,delayed release take 1 capsule by oral route every day before a meal 20 MG - Active FreeStyle Keith 2 Sensor kit change every 14 days - Active hyperglycemia naloxone 0.4 mg/mL injection syringe inject 1 milliliter by intravenous route over once, may repeat at 2 to 3 minute intervals as needed as needed - Active PRN for OD Procedures Procedure Date OFFICE/OUTPATIENT VISIT, EST OFFICE/OUTPATIENT VISIT, EST OFFICE/OUTPATIENT VISIT, EST OFFICE/OUTPATIENT VISIT, EST OFFICE/OUTPATIENT VISIT, EST OFFICE/OUTPATIENT VISIT, EST PREV VISIT, EST, AGE 40-64 OFFICE/OUTPATIENT VISIT, EST OFFICE/OUTPATIENT VISIT, EST OFFICE/OUTPATIENT VISIT, EST OFFICE/OUTPATIENT VISIT, EST OFFICE/OUTPATIENT VISIT, EST OFFICE/OUTPATIENT VISIT, EST OFFICE/OUTPATIENT VISIT, EST OFFICE/OUTPATIENT VISIT, EST PREV VISIT, EST, AGE 40-64 OFFICE/OUTPATIENT VISIT, EST OFFICE/OUTPATIENT VISIT, EST OFFICE/OUTPATIENT VISIT, EST OFFICE/OUTPATIENT VISIT, EST OFFICE/OUTPATIENT VISIT, EST OFFICE/OUTPATIENT VISIT, EST OFFICE/OUTPATIENT VISIT, EST OFFICE/OUTPATIENT VISIT, EST OFFICE/OUTPATIENT VISIT, EST OFFICE/OUTPATIENT VISIT, EST PREV VISIT, EST, AGE 40-64 OFFICE/OUTPATIENT VISIT, EST PREV VISIT, EST, AGE 40-64 OFFICE/OUTPATIENT VISIT, EST OFFICE/OUTPATIENT VISIT, EST OFFICE/OUTPATIENT VISIT, EST OFFICE/OUTPATIENT VISIT, EST OFFICE/OUTPATIENT VISIT, EST OFFICE/OUTPATIENT VISIT, EST OFFICE/OUTPATIENT VISIT, EST OFFICE/OUTPATIENT VISIT, EST OFFICE/OUTPATIENT VISIT, EST PREV VISIT, EST, AGE 40-64 OFFICE/OUTPATIENT VISIT, EST OFFICE/OUTPATIENT VISIT, EST OFFICE/OUTPATIENT VISIT, EST OFFICE/OUTPATIENT VISIT, EST PREV VISIT, EST, AGE 40-64 OFFICE/OUTPATIENT VISIT, EST OFFICE/OUTPATIENT VISIT, EST OFFICE/OUTPATIENT VISIT, EST OFFICE/OUTPATIENT VISIT, EST OFFICE/OUTPATIENT VISIT, EST PREV VISIT, EST, AGE 40-64 OFFICE/OUTPATIENT VISIT, EST OFFICE/OUTPATIENT VISIT, EST OFFICE/OUTPATIENT VISIT, EST OFFICE/OUTPATIENT VISIT, EST PREV VISIT, EST, AGE 40-64 OFFICE/OUTPATIENT VISIT, EST OFFICE/OUTPATIENT VISIT, EST OFFICE/OUTPATIENT VISIT, EST OFFICE/OUTPATIENT VISIT, EST PREV VISIT, EST, AGE 40-64 OFFICE/OUTPATIENT VISIT, EST OFFICE/OUTPATIENT VISIT, EST OFFICE/OUTPATIENT VISIT, EST OFFICE/OUTPATIENT VISIT, EST PREV VISIT, EST, AGE 40-64 OFFICE/OUTPATIENT VISIT, EST OFFICE/OUTPATIENT VISIT, EST Advance Directives Directive Yes / No Effective Date File Name No Information Encounters Encounter Description Practice Location Reason(s) For Visit Diagnoses Date Provider Providers Copied on Encounter OFFICE/OUTPA TIENT VISIT, [facility], [facility], [address] [place], [place], [address], [phone] [facility] anxiety1 (chief complaint) pain (chief complaint) HLP (chief complaint) Barrett1 (chief complaint) anemia1 (chief complaint) dumping1 (chief complaint) Mixed hyperlipidemiaHyper glycemiaIron deficiency anemiaElevated prostate specific antigen [PSA]Generalized anxiety disorderDumping syndromeChronic pain syndromeBarrett's esophagus without dysplasia [address], [address] , . tel:[phone] OFFICE/OUTPA TIENT VISIT, [facility], [address] [place], [place], [address], tel:[phone] [facility] anxiety1 (chief complaint) pain (chief complaint) dumping1 (chief complaint) anemia1 (chief complaint) Chronic pain syndromeDumping syndromeGeneralized anxiety disorderAnemiaEleva hussain prostate specific antigen [PSA] 5 [facility] [address]. [address], [place], [place], [address] , [place]. tel:[phone] OFFICE/OUTPA TIENT VISIT, [facility], [address], [place], [place], [address], [place] tel:[phone] [facility] Barrett1 (chief complaint) anxiety1 (chief complaint) pain (chief complaint) dumping1 (chief complaint) Chronic pain syndromeGeneralized anxiety disorderBarrett's esophagus without dysplasiaDumping syndrome 4 [facility] [address]. [address], [place], [place], [address] , [place]. tel:[phone] OFFICE/OUTPA TIENT VISIT, [facility], [address] [place], [address], [place] tel:[phone] [facility] anxiety1 (chief complaint) pain (chief complaint) glucose1 (chief complaint) Chronic pain syndromeGeneralized anxiety disorderDumping syndromeHypoglycemi a 4 [facility] [address]. [address], [place], [place], [address] , [place]. tel:[phone] OFFICE/OUTPA TIENT VISIT, [facility], [address] [place], [address], [place] tel:[phone] [facility] pain (chief complaint) anxiety1 (chief complaint) Chronic pain syndromeGeneralized anxiety disorder 4 [address]. [address], [place], [place], [address] , [place]. tel:[phone] OFFICE/OUTPA TIENT VISIT, [facility], [address] [place], [address], [place] tel:[phone] [facility] pain (chief complaint) pain (chief complaint) Barrett1 (chief complaint) PSA (chief complaint) anemia1 (chief complaint) AnemiaBarrett's esophagus without dysplasiaChronic pain syndromeElevated prostate specific antigen [PSA]Essential (primary) hypertensionGeneral ized anxiety disorder 4 Childress Ivan. [address], [place], [place], [address] , [place]. tel:[phone] PREV VISIT, EST, AGE 40-64 [facility], [address], [place], [place], [address], [place] tel:[phone] [facility] physical (chief complaint) Encounter for general adult medical exam w abnormal findingsAnemiaEleva hussain prostate specific antigen [PSA]Rahman's esophagus without dysplasiaGeneralize d anxiety disorderChronic pain syndromeEssential (primary) hypertensionHypergl ycemia 4 [facility] [address]. [address], [place], [place], [address] , [place]. tel:[phone] OFFICE/OUTPA TIENT VISIT, [facility], [address], [place], [place], [address], [place] tel:[phone] [facility] anxiety1 (chief complaint) pain (chief complaint) Chronic pain syndromeGeneralized anxiety disorder 4 [address], [place], [place], [address] , [place]. tel:[phone] OFFICE/OUTPA TIENT VISIT, [facility], [address], [place], [place], [address], [place] tel:[phone] [facility] Barrett1 (chief complaint) anxiety1 (chief complaint) pain1 (chief complaint) anemia1 (chief complaint) AnemiaBarrett's esophagus without dysplasiaChronic pain syndromeGeneralized anxiety disorderElevated prostate specific antigen [PSA] 4 Childress Ivan. [address], [place], [place], [address] , [place]. tel:[phone] OFFICE/OUTPA TIENT VISIT, [facility], [address], [place], [place], [address], [place] tel:[phone] [facility] back pain1 (chief complaint) anxiety1 (chief complaint) rahman (chief complaint) HTN (chief complaint) anemia1 (chief complaint) Essential (primary) hypertensionBarrett 's esophagus without dysplasiaAnemiaChro jose miguel pain syndromeGeneralized anxiety disorder 3 [address], [place], [place], [address] , [place]. [phone] OFFICE/OUTPA TIENT VISIT, [facility], [address] [place], [address], [place] tel:[phone] [facility] pain (chief complaint) anxiety1 (chief complaint) HTN (chief complaint) Chronic pain syndromeGeneralized anxiety disorderAnemiaEssen tial (primary) hypertension 3 [facility] [address], [place], [place], [address] , [place]. [phone] OFFICE/OUTPA TIENT VISIT, [facility], [address] [place], [address], [place] tel:[phone] [facility] Anemia1 (chief complaint) B12 (chief complaint) pain (chief complaint) anxiety1 (chief complaint) glucose1 (chief complaint) AnemiaChronic pain syndromeGeneralized anxiety disorderHyperglycem iaOther specified abnormal findings of blood chemistry 3 [facility] [address], [place], [place], [address] , [place]. [phone] OFFICE/OUTPA TIENT VISIT, [facility], [address] [place], [address], [place] tel:[phone] [facility] glucose (chief complaint) anemia1 (chief complaint) pain (chief complaint) anxiety1 (chief complaint) HyperglycemiaAnemia Chronic pain syndromeGeneralized anxiety disorderBarrett's esophagus without dysplasia 3 [facility] [address], [place], [place], [address] , [place]. tel:[phone] OFFICE/OUTPA TIENT VISIT, [facility], [address] [place], [address], [place] tel:[phone] [facility] pain (chief complaint) anxiety1 (chief complaint) Chronic pain syndromeGeneralized anxiety disorder 3 [facility] [address], [place], [place], [address] , [place]. tel:[phone] PREV VISIT, EST, AGE 40-64 [facility], [address], [place], [place], [address], [place] [phone] [facility] physical (chief complaint) Encounter for general adult medical exam w abnormal findingsBarrett's esophagus without dysplasiaElevated prostate specific antigen [PSA]Generalized anxiety disorderChronic pain syndromePolyp of colonChronic sinusitis 3 [facility] [address], [place], [place], [address] , [place]. tel: [phone] OFFICE/OUTPA TIENT VISIT, [facility], [address], [place], [place], [address], [place] tel:[phone] [facility] pSA (chief complaint) sinusitis1 (chief complaint) pain (chief complaint) anxiety1 (chief complaint) Barrett1 (chief complaint) Chronic sinusitisChronic pain syndromeElevated prostate specific antigen [PSA]Generalized anxiety disorderBarrett's esophagus without dysplasia 3 [facility] [address], [place], [place], [address] , [place]. tel: [phone] OFFICE/OUTPA TIENT VISIT, EST [facility], [address], [place], [place], [address], [place] tel:[phone] [facility] sinusitis1 (chief complaint) pain (chief complaint) anxiety1 (chief complaint) BPH1 (chief complaint) Chronic pain syndromeChronic sinusitisGeneralize d anxiety disorderElevated prostate specific antigen [PSA] 3 [address], [place], [place], [address] , [place]. tel: [phone] OFFICE/OUTPA TIENT VISIT, EST [facility], [address], [place], [place], [address], [place] tel:[phone] [facility] pain (chief complaint) anxiety1 (chief complaint) sinus1 (chief complaint) Chronic sinusitisChronic pain syndromeGeneralized anxiety disorderCOVID-19 2 [address], [place], [place], [address] , [place]. tel:[phone] OFFICE/OUTPA TIENT VISIT, [facility], [address], [place], [place], [address], [place] tel:[phone] [facility] Barretts (chief complaint) pain (chief complaint) anxiety1 (chief complaint) sinus1 (chief complaint) Rahman's esophagus without dysplasiaChronic pain syndromeGeneralized anxiety disorderChronic sinusitis 2 [facility] [address], [place], [place], [address] , [place]. tel:[phone] OFFICE/OUTPA TIENT VISIT, [facility], [address], [place], [place], [address], [place] tel:[phone] [facility] anxiety1 (chief complaint) back pain1 (chief complaint) sinus1 (chief complaint) PSA (chief complaint) Acute sinusitisChronic pain syndromeGeneralized anxiety disorderElevated prostate specific antigen [PSA] 2 [address], [place], [place], [address] , [place]. tel:[phone] OFFICE/OUTPA TIENT VISIT, [facility], [address], [place], [place], [address], [place] tel:[phone] [facility] pain1 (chief complaint) Other spondylosis, lumbar regionChronic pain syndrome 2 [facility] [address], [place], [place], [address] , [place]. tel:[phone] OFFICE/OUTPA TIENT VISIT, [facility], [address], [place], [place], [address], [place] tel:[phone] [facility] pain (chief complaint) PSA (chief complaint) rahman (chief complaint) anxiety1 (chief complaint) Chronic pain syndromeElevated prostate specific antigen [PSA]Generalized anxiety disorderBarrett's esophagus without dysplasia Jan- 0 2 [facility] [address], [place], [place], [address] , [place]. tel: [phone] OFFICE/OUTPA TIENT VISIT, EST [facility], [address], [place], [place], [address], [place] tel:[phone] [facility] pain (chief complaint) Chronic pain syndrome Jan- 2 [facility] [address]. [address], [place], [place], [address] , [place]. tel: [phone] OFFICE/OUTPA TIENT VISIT, EST [facility], [address], [place], [place], [address], [place] tel:[phone] [facility] pain (chief complaint) PSA (chief complaint) Elevated prostate specific antigen [PSA]Chronic pain syndrome 2 [address]. [address], [place], [place], [address] , [place]. tel: [phone] PREV VISIT, EST, AGE 40-64 [facility], [address], [place], [place], [address], [place] tel:[phone] [facility] physical (chief complaint) Encounter for general adult medical exam w abnormal findingsBarrett's esophagus without dysplasiaGeneralize d anxiety disorderChronic pain syndromeElevated prostate specific antigen [PSA] 2 [address]. [address], [place], [place], [address] , [place]. tel:[phone] PREV VISIT, EST, AGE 40-64 [facility], [address], [place], [place], [address], [place] tel:[phone] [facility] physical (chief complaint) Encounter for general adult medical exam w abnormal findingsChronic pain syndromeGeneralized anxiety disorderBarrett's esophagus without dysplasiaElevated prostate specific antigen [PSA] 1 [address], [place], [place], [address] , [place]. tel:[phone] OFFICE/OUTPA TIENT VISIT, [facility], [address], [place], [place], [address], [place] tel:[phone] [facility] feeling weird1 (chief complaint) back pain1 (chief complaint) anxiety1 (chief complaint) Chronic pain syndromeGeneralized anxiety disorderTransient cerebral ischemic attackMalaise 0 [facility] [address], [place], [place], [address] , [place]. tel:[phone] OFFICE/OUTPA TIENT VISIT, [facility], [address], [place], [place], [address], [place] tel:[phone] [facility] TIA (chief complaint) TIA1 (chief complaint) back pain1 (chief complaint) anxiety1 (chief complaint) Transient cerebral ischemic attackChronic pain syndromeGeneralized anxiety disorderBarrett's esophagus without dysplasia 0 [facility] [address], [place], [place], [address] , [place]. tel:[phone] OFFICE/OUTPA TIENT VISIT, [facility], [address], [address], [place] tel:[phone] [facility] dizziness1 (chief complaint) back pain1 (chief complaint) anxiety1 (chief complaint) Rahman (chief complaint) Dumping syndromeBarrett's esophagus without dysplasiaGeneralize d anxiety disorderChronic pain syndrome 0 [facility] [address], [place], [place], [address] , [place]. tel:[phone] Referring Provider: [address], [place], [place], [address]. tel:[phone] OFFICE/OUTPA TIENT VISIT, [facility], [address], [place], [place], [address], [place] tel:[phone] [facility] dizziness1 (chief complaint) DizzinessDumping syndromeHypoglycemi a 9 [address]. [address], [place], [place], [address] , [place]. tel:[phone] Referring Provider: Ivan Childress, [address], [place], [place], [address]. tel:[phone] OFFICE/OUTPA TIENT VISIT, [facility], [address], [place], [place], [address], [place] tel:[phone] [facility] dizzy1 (chief complaint) DizzinessChronic maxillary sinusitisHeadacheAl tered mental status 9 [facility] [address]. [address], [place], [place], [address] , [place]. tel:[phone] Referring Provider: Michael [address], [place], [place], [address]. tel:[phone] OFFICE/OUTPA TIENT VISIT, [facility], [address], [place], [place], [address], [place] tel:[phone] [facility] barrett1 (chief complaint) spacy1 (chief complaint) chronic pain1 (chief complaint) Rahman's esophagus without dysplasiaChronic pain syndromeGeneralized anxiety disorderDizziness 9 [address]. [address], [place], [place], [address] , [place]. tel:[phone] Referring Provider: Ivan Childress [address], [place], [place], [address]. tel:[phone] OFFICE/OUTPA TIENT VISIT, [facility], [address], [place], [place], [address], [place] tel:[phone] [facility] Rahman (chief complaint) anxiety1 (chief complaint) back pain1 (chief complaint) PSA (chief complaint) sick1 (chief complaint) Generalized anxiety disorderPolyp of colonBarrett's esophagus without dysplasiaChronic pain syndromeDizzinessEl evated prostate specific antigen [PSA] 9 [address], [place], [place], [address] , [place]. [phone] Referring Provider: Michael [address], [place], [place], [address]. tel:[phone] OFFICE/OUTPA TIENT VISIT, EST [facility], [address], [place], [place], [address], [place] tel:[phone] [facility] GERD1 (chief complaint) Anxiety1 (chief complaint) back pain1 (chief complaint) urine1 (chief complaint) Polyp of colonBarrett's esophagus without dysplasiaGeneralize d anxiety disorderChronic pain syndromeAbnormal finding in urine 9 [facility] [address], [place], [place], [address] , [place]. tel:[phone] Referring Provider: Michael Parham [address], [place], [place], [address]. tel:[phone] PREV VISIT, EST, AGE 40-64 [facility], [address], [place], [place], [address], [place] tel:[phone] [facility] PHysical (chief complaint) Encounter for general adult medical exam w abnormal findingsPolyp of colonChronic pain syndromeGeneralized anxiety disorderGERD w/ esophagitis 9 [facility] [address], [place], [place], [address] , [place]. [phone] Referring Provider: Michael Parham [address], [place], [place], [address]. tel:[phone] OFFICE/OUTPA TIENT VISIT, EST [facility], [address], [place], [place], [address], [place] tel:[phone] [facility] GERd1 (chief complaint) anxiety1 (chief complaint) back pain1 (chief complaint) BPH1 (chief complaint) Generalized anxiety disorderChronic pain syndromeBarrett's esophagus without dysplasiaElevated prostate specific antigen [PSA]Polyp of colon 8 [facility] [address]. [address], [place], [place], [address] , [place]. [phone] Referring Provider: Michael Parham [address], [place], [place], [address]. tel:[phone] OFFICE/OUTPA TIENT VISIT, EST [facility], [address], [place], [place], [address], [place] [phone] [facility] Barrett1 (chief complaint) back pain1 (chief complaint) anxiety1 (chief complaint) Rahman's esophagus without dysplasiaPolyp of colonChronic pain syndromeGeneralized anxiety disorderElevated prostate specific antigen [PSA] 8 [address], [place], [place], [address] , [place]. tel:[phone] Referring Provider: Michael Parham [address], [place], [place], [address]. tel:[phone] OFFICE/OUTPA TIENT VISIT, [facility], [address], [place], [place], [address], [place] tel:[phone] [facility] GERD1 (chief complaint) back pain1 (chief complaint) anxiety1 (chief complaint) PSA (chief complaint) Rahman's esophagus without dysplasiaGeneralize d anxiety disorderChronic pain syndromeElevated prostate specific antigen [PSA] 8 [address], [place], [place], [address] , [place]. tel:[phone] Referring Provider: Michael Parham [address], [place], [place], [address]. tel:[phone] PREV VISIT, EST, AGE 40-64 [facility], [address], [place], [place], [address], [place] tel:[phone] [facility] PHysical (chief complaint) Encounter for general adult medical exam w abnormal findingsChronic pain syndromeGeneralized Anxiety DisorderBarrett's esophagus without dysplasia Jan-0 8 [facility] [address], [place], [place], [address] , [place]. tel:[phone] Referring Provider: Michael Parham [address], [place], [place], [address]. tel:[phone] OFFICE/OUTPA TIENT VISIT, [facility], [address], [place], [place], [address], [place] tel:[phone] [facility] back pain1 (chief complaint) anxizety1 (chief complaint) Chronic pain syndromeGeneralized Anxiety Disorder Oct- 7 [facility] [address], [place], [place], [address] , [place]. [phone] Referring Provider: Michael Parham [address], [place], [place], [address]. tel:[phone] OFFICE/OUTPA TIENT VISIT, [facility], [address], [place], [place], [address], [place] tel:[phone] [facility] back apin1 (chief complaint) anxiety1 (chief complaint) Rahman (chief complaint) Chronic pain syndromeGeneralized anxiety disorderBarrett's esophagus without dysplasia Sep- 7 [address], [place], [place], [address] , [place]. [phone] Referring Provider: Michael Parham [address], [place], [place], [address]. tel:[phone] OFFICE/OUTPA TIENT VISIT, [facility], [address], [place], [place], [address], [place] tel:[phone] [facility] back pain1 (chief complaint) anxiety1 (chief complaint) hep c (chief complaint) Chronic pain syndromeGeneralized Anxiety DisorderEncounter for screening for other viral diseases 7 [facility] [address] [address], [place], [place], [address] , [place]. [phone] Referring Provider: Michael Parham [address], [place], [place], [address]. tel:[phone] OFFICE/OUTPA TIENT VISIT, EST [facility], [address], [place], [place], [address], [place] [phone] [facility] GERD1 (chief complaint) back pain1 (chief complaint) anxiety1 (chief complaint) colon polyp (chief complaint) Rahman's esophagus without dysplasiaGeneralize d Anxiety DisorderLow back painPolyp of colon 7 Monroe Love. [address], [place], [place], [address] , [place]. tel:[phone] Referring Provider: Michael Parham [address], [place], [place], [address]. tel:[phone] PREV VISIT, EST, AGE 40-64 [facility], [address], [place], [place], [address], [place] [phone] [facility] Physical (chief complaint) Encounter for general adult medical exam w abnormal findingsElevated prostate specific antigen [PSA]Rahman's esophagus without dysplasiaGeneralize d Anxiety Disorder 7 [address] Love. [address], [place], [place], [address] , [place]. [phone] Referring Provider: Michael Parham [address], [place], [place], [address]. tel:[phone] OFFICE/OUTPA TIENT VISIT, EST [facility], [address], [place], [place], [address], [place] [phone] [facility] GERD1 (chief complaint) back apin1 (chief complaint) anxiety1 (chief complaint) GERD w/ esophagitisEnteroco litis due to C diffLow back painGeneralized Anxiety Disorder 6 [address], [place], [place], [address] , [place]. [phone] Referring Provider: [address], [place], [place], [address]. tel:[phone] OFFICE/OUTPA TIENT VISIT, [facility], [address], [place], [place], [address], [place] tel:[phone] [facility] C, diff (chief complaint) back pain1 (chief complaint) Pseudomembraneous colitisNeuropathyDr ug-induced polyneuropathy 6 [address] Love[address], [place], [place], [address] , [place]. [phone] Referring Provider: Michael Parham [address], [place], [place], [address]. tel:[phone] OFFICE/OUTPA TIENT VISIT, [facility], [address], [place], [place], [address], [place] tel:[phone] [facility] Rahman (chief complaint) back apin (chief complaint) anxiety1 (chief complaint) Rahman's esophagus without dysplasiaLow back painGeneralized Anxiety DisorderElevated prostate specific antigen [PSA] 6 [address], [place], [place], [address] , [place]. [phone] Referring Provider: Michael Parham [address], [place], [place], [address]. tel:[phone] PREV VISIT, EST, AGE 40-64 [facility], [address], [place], [place], [address], [place] tel:[phone] [facility] PHysical (chief complaint) Encounter for general adult medical exam w abnormal findingsGeneralized anxiety disorderElevated PSAGERD without esophagitis 6 [address] Love[address], [place], [place], [address] , [place]. [phone] Referring Provider: Michael Parham [address], [place], [place], [address]. tel:[phone] OFFICE/OUTPA TIENT VISIT, [facility], [address], [place], [place], [address], [place] tel:[phone] [facility] lumbago1 (chief complaint) anxiety1 (chief complaint) GERD1 (chief complaint) Dietary surveillance and counselingGERD without esophagitisOther spondylosis, lumbar regionGeneralized Anxiety DisorderElevated PSA 5 [address], [place], [place], [address] , [place]. [phone] Referring Provider: Ivan Childress, [address], [place], [place], [address]. tel:[phone] OFFICE/OUTPA TIENT VISIT, [facility], [address], [place], [address], [place] tel:[phone] [facility] back pain (chief complaint) GERD (chief complaint) anxiety (chief complaint) LumbagoGeneralized anxiety disorderEsophageal refluxElevated prostate specific antigen [PSA] 5 [address], [place], [place], [address] , [place]. [phone] Referring Provider: Michael Parham [address], [place], [place], [address]. tel:[phone] OFFICE/OUTPA TIENT VISIT, [facility], [address], [place], [place], [address], [place] tel:[phone] [facility] PSA (chief complaint) vitamin D (chief complaint) anxiety (chief complaint) back pain (chief complaint) GERD (chief complaint) GERDUnspecified vitamin d deficiencyGeneraliz ed anxiety disorderLumbagoDiet wilman surveillance and counseling 5 [address] Love[address], [place], [place], [address] , [place]. [phone] Referring Provider: Michael Parham [address], [place], [place], [address]. tel:[phone] PREV VISIT, EST, AGE 40-64 [facility], [address], [place], [place], [address], [place] tel:[phone] [facility] Physical (chief complaint) Routine Medical ExamLumbagoElevated prostate specific antigen (psa)GERDRoutine Medical Exam 4 [address] Love[address], [place], [place], [address] , [place]. tel:[phone] Referring Provider: Michael Parham [address], [place], [place], [address]. tel:[phone] OFFICE/OUTPA TIENT VISIT, [facility], [address], [place], [place], [address], [place] tel:[phone] [facility] back pain (chief complaint) anxiety (chief complaint) PSA (chief complaint) LumbagoGeneralized anxiety disorderFamily history of malignant neoplasm of prostate 4 [address], [place], [place], [address] , [place]. tel:[phone] Referring Provider: Michael Parham [address], [place], [place], [address]. tel:[phone] OFFICE/OUTPA TIENT VISIT, [facility], [address], [place], [place], [address], [place] tel:[phone] [facility] back pain (chief complaint) anxiety (chief complaint) HTN (chief complaint) Dietary surveillance and counselingGeneraliz ed anxiety disorderLumbagoHype rtension, UnspecifiedElevated prostate specific antigen (psa) Apr-0 4 [address], [place], [place], [address] , [place]. tel:[phone] Referring Provider: Michael Parham [address], [place], [place], [address]. tel:[phone] OFFICE/OUTPA TIENT VISIT, [facility], [address], [place], [place], [address], [place] tel:[phone] [facility] back pain (chief complaint) anxiety (chief complaint) elevated PSA (chief complaint) Dietary surveillance and counselingGeneraliz ed anxiety disorderElevated prostate specific antigen (psa)Lumbago 3 [address] Love[address], [place], [place], [address] , [place]. [phone] Referring Provider: Michael Parham [address], [place], [place], [address]. tel:[phone] PREV VISIT, EST, AGE 40-64 [facility], [address], [place], [place], [address], [place] [phone] [facility] Physical (chief complaint) Dietary surveillance and counselingRoutine Medical ExamLumbagoGenerali zed anxiety disorderRoutine Medical Exam 3 [address], [place], [place], [address] , [place]. [phone] Referring Provider: Michael Parham [address], [place], [place], [address]. tel:[phone] OFFICE/OUTPA TIENT VISIT, EST [facility], [address] [place] [address], [place] [phone] [facility] back pain (chief complaint) anxiety (chief complaint) Dietary surveillance and counselingHypertens ion, UnspecifiedLumbagoG eneralized anxiety disorderElevated prostate specific antigen (psa) 3 [address], [place], [place], [address] , [place]. [phone] Family History Family Member Type Diagnosis Age At Onset Mother Problem (finding) Alive and well Sister Problem (finding) Alive and well Father Problem (finding) Cancer, prostate 62 Payers Payer name Insurance type Covered democrat ID Authorjanenea tiharish(s) [facility] CI [id number] Social History Type Description Quantity Date Captured Comments Alcohol Use Details No Caffeine Use Details Unknown Tobacco Use Status Ex-cigarette smoker 025 Smoking Status Former smoker Sex Male Vital Signs Date / Time: Height Weight BMI Pulse Rate Blood Pressure Temperature Respiratory Rate Body Surface Area Head Circumference BMI percentile Pulse Ox Inhaled Ox 2:15 PM 72.00 in 206.80 lbs 28.0 5 kg/m eter (2) 76 /min 140/80 mm[Hg] 97.9 F 16 /min Chief Complaint And Reason For Visit From encounter dated '01/08/2025 14:11'. anxiety1 (chief complaint). Description: Pt has chronic anxiety. Pt denies any depression or any suicidal or homicidal thought Pt denies any crying spells .Pt takes xanax PRN and doing ok Pt needs refilled pain (chief complaint). Description: Pt has chronic low back pain due to DDD. Pt denies any loss ofbowel or bladder control or saddle area paresthesia. Pt takes norco PRN for pain and doing ok. Pt denies any leg neuropathy HLP (chief complaint). Description: Pt has mild HLP and high glucose Pt denies any polyuria, polydipsia. Barrett1 (chief complaint). Description: pt has rahman Pt just had EGD done recently which showed rahman and he was told to repeat in 3 years Pt is on omeprazole daily anemia1 (chief complaint). Description: Pt has chronic mild anemia and low iron. Pt denies any bleeding dumping1 (chief complaint). Description: Pt has history of gastric dumping syndrome but acarbose isnot working. Pt is off acarbose. Plan Of Treatment Date Type Action Status Goal Tobacco cessation counseling completed Goal Tobacco cessation counseling completed Goal Special diet education compl eted Goal Special diet education compl eted Goal Tobacco cessation counseling completed Goal Tobacco cessation counseling completed Goal Special diet education compl eted Goal Tobacco cessation counseling completed Goal Special diet education compl eted Goal Special diet education compl eted Goal Tobacco cessation counseling completed Goal Special diet education compl eted Goal Tobacco cessation counseling completed Goal Tobacco cessation counseling completed Goal Special diet education compl eted Goal Special diet education compl eted Goal Tobacco cessation counseling completed Goal Tobacco cessation counseling completed Goal Tobacco cessation counseling completed Goal Tobacco cessation counseling completed Goal Tobacco cessation counseling completed Goal Tobacco cessation counseling completed Goal Tobacco cessation counseling completed Referral Ordered: Otolaryngology (related to Chronic sinusitis) ordered Referral Ordered: Otolaryngology (related to Chronic sinusitis) ordered Referral Ordered: Referrals: Otolaryngology. Evaluate and treat ordered Referral Ordered: Otolaryngology (related to Chronic sinusitis) ordered Referral Ordered: Referrals: Otolaryngology ordered Referral Ordered: Neurology (related to Transient cerebral ischemic attack) ordered Referral Ordered: DOPPLER ECHO EXAM, HEART ordered Referral Ordered: US CAROTID ordered Referral Ordered: Referrals: Neurology. Evaluate and treat ordered Referral Ordered: Roselyn Alejandro -Allopathic & Osteopathic Physicians : Internal Medicine : Endocrinology, Diabetes & Metabolism (related to Dizziness) ordered Referral Referred To: Roselyn Alejandro [id number] [facility]
[address] [place], [place] [id number] Ordered: Referrals: Allopathic & Osteopathic Physicians : Internal Medicine : Endocrinology, Diabetes & Metabolism. Roselyn Alejandro. Evaluate and treat ordered Referral Ordered: UPPER GI W/ KUB ordered Referral Referred To: Mara Juan MD [address] [facility]
[place], [address] Ordered: Referrals: Mara Juan MD. Evaluate and treat ordered Referral Ordered: SENSE NERVE CONDUCTION TEST ordered Referral Ordered: MRI BRAIN W/O & W/DYE ordered Referral Ordered: CT MAXILLOFACIAL W/O DYE (SINUSES) SF ordered Referral Ordered: Gastroenterology (related to Polyp of colon) ordered Referral Ordered: Gastroenterology (related to Polyp of colon) ordered Referral Ordered: Referrals: Gastroenterology. Evaluate and treat ordered Referral Ordered: COLONOSCOPY AND BIOPSY ordered History Of Present Illness Encounter Date Complaint History Of Prese nt Illness anxiety1 Pt has chronic a nxiety. Pt denies any depression or any suicidal or homicidal thought Pt denies any crying spells .Pt takes xanax PRN and doing ok Pt needs refilled pain Pt has chronic l ow back pain due to DDD. Pt denies any loss of bowel or bladder control or saddle area paresthesia. Pt takes norco PRN for pain and doing ok. Pt denies any leg neuropathy HLP Pt has mild HLP and high glucose Pt denies any polyuria, polydipsia. Barrett1 pt has rahman P t just had EGD done recently which showed rahman and he was told to repeat in 3 years Pt is on omeprazole daily anemia1 Pt has chronic m ild anemia and low iron. Pt denies any bleeding dumping1 Pt has history o f gastric dumping syndrome but acarbose is not working. Pt is off acarbose. anxiety1 Pt has chronic a nxiety. Pt denies any depression or any suicidal or homicidal thought Pt denies any crying spells .Pt takes xanax PRN and doing ok Pt needs refilled pain Pt has chronic l ow back pain due to DDD. Pt denies any loss of bowel or bladder control or saddle area paresthesia. Pt takes norco PRN for pain and doing ok. Pt denies any leg neuropathy dumping1 Pt has dumping s yndrome and he is on acarbose pre meals and he is doing ok. pt denies any hypoglycemia post meal. anemia1 Pt has history o f mild anemia pt denies any blood loss .Pt has rahman and is doing ok with omeprazole Pt has not done EGD yet Barrett1 Pt has Rahman P t takes omeprazole and doing ok Pt is noncompliant with EGD anxiety1 Pt has chronic a nxiety. Pt denies any depression or any suicidal or homicidal thought Pt denies any crying spells .Pt takes xanax PRN and doing ok Pt needs refilled dumping1 Pt has dumping s yndrome Pt tried acarbose for one week which he did well and did not have any hypoglycemic episodes. He had some viral infection symptoms several weeks ago and he stopped the acarbose due to overall feeling sick. Pt states that he recovered fully but he has not restated the acarbose again pain Pt has chronic l ow back pain due to DDD. Pt denies any loss of bowel or bladder control or saddle area paresthesia. Pt takes norco PRN for pain and doing ok. Pt denies any leg neuropathy glucose1 Pt has intermitt ent low glucose. pt was seeing endo and had negative work up. he is wearing free style keith and his glucose sometimes drops to 50s and he has to eat some food if glucose low Pt states that his glucose tends to drop after eating a lot of carbs. Pt was diagnosis of dumping syndrome. His endo only wants him to use free style keith pain Pt has chronic l ow back pain due to DDD. Pt denies any loss of bowel or bladder control or saddle area paresthesia. Pt takes norco PRN for pain and doing ok. Pt denies any leg neuropathy anxiety1 Pt has chronic a nxiety. Pt denies any depression or any suicidal or homicidal thought Pt denies any crying spells .Pt takes xanax PRN and doing ok Pt needs refilled pain Pt has chronic l ow back pain due to DDD. Pt denies any loss of bowel or bladder control or saddle area paresthesia. Pt takes norco PRN for pain and doing ok. Pt denies any leg neuropathy anxiety1 Pt has chronic a nxiety. Pt denies any depression or any suicidal or homicidal thought Pt denies any crying spells .Pt takes xanax PRN and doing ok Pt needs refilled PSA Pt has elevated PSA Pt denies any urinary symptoms Pt saw urology recently and had PSA done which was 3.64 anemia1 Pt has mild anem ia Pt is noncompliant with fecal globin. Pt denies any bleeding pain Pt has chronic a nxiety. Pt denies any depression or any suicidal or homicidal thought Pt denies any crying spells .Pt takes xanax PRN and doing ok Pt needs refilled pain Pt has chronic l ow back pain due to DDD. Pt denies any loss of bowel or bladder control or saddle area paresthesia. Pt takes norco PRN for pain and doing ok. Pt denies any leg neuropathy Barrett1 Pt has rahman e sagar .Pt takes omeprazole and doing ok Pt still has not set up EGD yet physical Pt needs annual physical pt has Rahman Pt takes omeprazole and doing ok pt denies any GERD or abd pain Pt has chronic low back pain due to DDD Pt denies any loss of bowel or bladder control or saddle area paresthesia Pt takes norco PRN for pain Pt has chronic anxiety Pt denies any depression or any suicidal or homicidal thought Pt denies any crying spells Pt has elevated PSA Pt denies any urinary symptoms Pt had PSA done by urology last week and was 4.17. pt has mild anemia Pt is noncompliant with fecal globin and EGD. anxiety1 Pt has chronic a nxiety. Pt denies any depression or any suicidal or homicidal thought Pt denies any crying spells .Pt takes xanax PRN and doing ok Pt needs refilled pain Pt has chronic l ow back pain due to DDD. Pt denies any loss of bowel or bladder control or saddle area paresthesia. Pt takes norco PRN for pain and doing ok. Pt denies any leg neuropathy anxiety1 Pt has chronic a nxiety. Pt denies any depression or any suicidal or homicidal thought Pt denies any crying spells .Pt takes xanax PRN and doing ok Pt needs refilled pain1 Pt has chronic l ow back pain due to DDD. Pt denies any loss of bowel or bladder control or saddle area paresthesia. Pt takes norco PRN for pain and doing ok. Pt denies any leg neuropathy anemia1 Pt has anemia wi th normal iron pt has not done fecal globin or EGD yet Barrett1 Pt has rahman e sophagus Pt takes omeprazole and doing ok Pt has not done EGD yet pt denies any abd pain or GERD or early satiety. Pt denies any weight loss . back pain1 Pt has chronic l ow back pain due to DDD. Pt denies any loss of bowel or bladder control or saddle area paresthesia. Pt takes norco PRN for pain and doing ok. Pt denies any leg neuropathy anxiety1 Pt has chronic a nxiety. Pt denies any depression or any suicidal or homicidal thought Pt denies any crying spells .Pt takes xanax PRN and doing ok Pt needs refilled rahman Pt has rahman e sophagus. Pt takes omeprazole daily Pt denies any GERD while on omeprazole. Pt still has not done EGD yet . HTN Pt has history o f hTN Pt denies any chest pain or headache Pt states that his bp is around 130/70 at home anemia1 Pt has anemia wi th normal iron pt has not done fecal globin or EGD yet pain Pt has chronic l ow back pain due to DDD. Pt denies any loss of bowel or bladder control or saddle area paresthesia. Pt takes norco PRN for pain and doing ok. Pt denies any leg neuropathy anxiety1 Pt has chronic a nxiety. Pt denies any depression or any suicidal or homicidal thought Pt denies any crying spells .Pt takes xanax PRN and doing ok Pt needs refilled HTN Pt has mild HTN Pt denies any chest pain or headache Pt states that his bp is around 130/80 at home glucose1 Pt has borderlin e high glucose Pt denies any polyuria, polydipsia pt had repeat glucose which was normal as well as his a1c Anemia1 Pt has mild anem ia. pt denies any bleeding .lab did not do his fecal globin his hemoglobin is improving. Pt had negative UA. Pt has not done EGD yet B12 Pt has borderlin e high B12. Pt is taking B12 supplement pain Pt has chronic l ow back pain due to DDD. Pt denies any loss of bowel or bladder control or saddle area paresthesia. Pt takes norco PRN for pain and doing ok. Pt denies any leg neuropathy anxiety1 Pt has chronic a nxiety. Pt denies any depression or any suicidal or homicidal thought Pt denies any crying spells .Pt takes xanax PRN and doing ok Pt needs refilled anxiety1 Pt has chronic a nxiety. Pt denies any depression or any suicidal or homicidal thought Pt denies any crying spells .Pt takes xanax PRN and doing ok Pt needs refilled pain Pt has chronic l ow back pain due to DDD. Pt denies any loss of bowel or bladder control or saddle area paresthesia. Pt takes norco PRN for pain and doing ok. Pt denies any leg neuropathy anemia1 Pt is mildly ane milagros. Pt denies any blood loss. Pt denies any fatigue or dizziness glucose Pt has glucose. Pt denies any polyuria, polydipsia. pain Pt has chronic l ow back pain due to DDD. Pt denies any loss of bowel or bladder control or saddle area paresthesia. Pt takes norco PRN for pain and doing ok. Pt denies any leg neuropathy anxiety1 Pt has chronic a nxiety. Pt denies any depression or any suicidal or homicidal thought Pt denies any crying spells .Pt takes xanax PRN and doing ok Pt needs refilled physical Pt needs annual physical. Pt has chronic low back pain due to DDD. Pt denies any loss of bowel or bladder control or saddle area paresthesia. Pt takes norco PRN for pain and doing ok Pt has chronic anxiety Pt denies any depression or any suicidal or homicidal thought Pt denies any crying spells Pt takes xanax PRn and doing ok ,Pt has Rahman esophagus Pt takes omeprazole and he denies any GERD Pt has elevated PSA. Pt is seeing urology ,Pt denies any urinary symptoms Pt also has chronic sinusitis. Pt is seeing ENT and is on abx now Pt denies any other complaints Barrett1 Pt has Rahman. Pt takes omeprazole daily and doing ok. Pt denies any abd pain or gerd. pSA Pt has elevated PSA Pt denies any urinary symptoms. Pt had PSA done recently which was 4.0. pain Pt has persisten t low back pain Pt denies any worsening pain Pt denies any loss of bladder control. Pt failed NSAID and ultram. Pt takes norco PRN for pain and doing ok Pt denies any sciatica or any saddle area paresthesia.. Pt needs norco refilled. sinusitis1 Pt has chronic s inusitis Pt called Dr. Maloney but he could not get in for 3 months Pt c/o sinus congestion and sinus pain daily anxiety1 Pt has chronic a nxiety. Pt denies any depression or any suicidal or homicidal thought Pt denies any crying spells .Pt takes xanax PRN and doing ok Pt needs refilled sinusitis1 Pt has chronic s inusitis Pt saw ENT and had nasoscope and he supposes to have surgery but he wants to see another ENT instead. he took 14 days of oral abx but did not help. Pt has chronic sinus congestion and pain Pt denies any fever or nasal drainage pain Pt has persisten t low back pain Pt denies any worsening pain Pt denies any loss of bladder control. Pt failed NSAID and ultram. Pt takes norco PRN for pain and doing ok Pt denies any sciatica or any saddle area paresthesia.. Pt needs norco refilled. anxiety1 Pt has chronic a nxiety. Pt denies any depression or any suicidal or homicidal thought Pt denies any crying spells .Pt takes xanax PRN and doing ok Pt needs refilled BPH1 Pt has elevated PSA Pt sees urology yearly for prostate exam and PSA Pt has gregorio with urology in May Pt denies any urinary symptoms pain Pt has persisten t low back pain Pt denies any worsening pain Pt denies any loss of bladder control. Pt failed NSAID and ultram. Pt takes norco PRN for pain and doing ok Pt denies any sciatica or any saddle area paresthesia.. Pt needs norco refilled. sinus Pt has chronic s inus congestion with some postnasal sinus drainage. Pt denies any sore throat Pt denies any cough. Pt feels sinus pressure all the time. Pt failed flonase and atrovent. Pt also tested positive for COVID on Sunday. Pt is fully vaccinated. Pt denies any fever, sob or cough now. anxiety Pt has chronic a nxiety. Pt denies any depression or any suicidal or homicidal thought Pt denies any crying spells .Pt takes xanax PRN and doing ok Pt needs refilled Barretts Pt has rahman. Pt takes omeprazole and doing ok Pt had EGD done 2019 .Pt denies any GERD or nausea or abd pain pain Pt has persisten t low back pain Pt denies any worsening pain Pt denies any loss of bladder control. Pt failed NSAID and ultram. Pt takes norco PRN for pain and doing ok Pt denies any sciatica or any saddle area paresthesia.. Pt needs norco refilled. anxiety Pt has chronic a nxiety. Pt denies any depression or any suicidal or homicidal thought Pt denies any crying spells .Pt takes xanax PRN and doing ok Pt needs refilled sinus Pt c/o persisten t sinus congestion, postnasal drainage for several months .Pt denies any cough .Pt denies any sore throat or dysphagia Pt denies any fever or sob. Pt denies any sick contact. Pt is fully vaccinated for COVID back pain1 Pt has chronic l ow back pain Pt denies any loss of bowel or bladder control or saddle area paresthesia pt takes norco PRN for pain and doing ok sinus1 Pt c/o acute sin us infection for one week. Pt c/o purulent sinus drainage, postnasal drainage, mild sore throat Pt denies any headache or fever or cough or sob PSA Pt saw urology 4 weeks ago and he had KRYSTAL which showed BPH per patient. He denies any urinary symptoms. He had PSA done by urology as well and was told level stable anxiety1 Pt has chronic a nxiety Pt denies any depression or any suicidal or homicidal thought .Pt denies any crying spells. Pt takes xanax PRn and doing ok pain1 Pt has persisten t low back pain Pt denies any worsening pain Pt denies any loss of bladder control. Pt failed NSAID and ultram. Pt takes norco PRN for pain and doing ok Pt denies any sciatica or any saddle area paresthesia. Pt only able to leaf size picker 28 norco last time and he was told that it is now from insurance to leaf size picker 90 this time. PSA Pt has elevated PSA .Pt denies any urinary symptoms .He recently saw urology and had KRYSTAL done which showed enlarged prostate. rahman Pt has rahman. Pt takes omeprazole and doing ok Pt had EGD done 2019 .Pt denies any GERD or nausea or abd pain anxiety1 Pt has chronic a nxiety Pt denies any depression or any suicidal or homicidal thought Pt denies any crying spells .Pt takes xanax PRN and doing ok Pt needs refilled pain Pt has persisten t low back pain Pt denies any worsening pain Pt denies any loss of bladder control. Pt failed NSAID and ultram. Pt takes norco PRN for pain and doing ok Pt denies any sciatica or any saddle area paresthesia.. Pt needs norco refilled. pain Pt has persisten t low back pain Pt denies any worsening pain Pt denies any loss of bladder control. Pt failed NSAID and ultram. Pt takes norco PRN for pain and doing ok Pt denies any sciatica or any saddle area paresthesia.. Pt needs norco refilled. PSA Pt has elevated PSA .Pt saw urology last week and he had KRYSTAL which showed slightly enlarged prostate. he is waiting for PSA from urology Pt denies any urinary symptoms pain Pt has persisten t low back pain Pt denies any worsening pain Pt denies any loss of bladder control. Pt failed NSAID and ultram. Pt takes norco PRN for pain and doing ok Pt denies any sciatica or any saddle area paresthesia. physical Pt needs annual physical, Pt has chronic low back pain due to DDD Pt denies any sciatica or any loss of bladder or bowel control Pt denies any neuropathy symptoms Pt denies any saddle area paresthesia. Pt failed NSAID and ultram Pt takes norco PRN for pain and doing ok. Pt failed neurontin. Pt also has chronic anxiety Pt denies any depression or any suicidal or homicidal thought Pt denies any crying spells Pt takes xanax PRN and doing ok PT also has rahman Pt had EGD and colonoscopy done 2019 which showed rahman and colonoscopy was benign. Pt also has elevated PSA. Pt sees urology physical Pt needs annual physical, Pt has chronic low back pain due to DDD Pt denies any sciatica or any loss of bladder or bowel control Pt denies any neuropathy symptoms Pt failed NSAID and ultram Pt takes norco PRN for pain and doing ok Pt also has chronic anxiety Pt denies any depression or any suicidal or homicidal thought Pt denies any crying spells Pt takes xanax PRN and doing ok PT also has rahman Pt had EGD and colonoscopy done last year and he told me GI told him everything was fine and no need for follow up for 5 years PT states that he stopped carbs and he no longer has GERD and he stopped omeprazole on his own. Pt otherwise feels well Pt denies any other complaints. 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 Patient denies any suicidal or homicidal thoughts. Patient denies any crying spells. Patient takes Xanax PRN and doing okay. back pain1 Pt has persisten t low back pain Pt denies any worsening pain Pt denies any loss of bladder control. Pt failed NSAID and ultram. Pt takes norco PRN for pain and doing ok feeling weird1 Pt states that h e has sudden onset of blurred vision and numbness and tingling around both hand and feet intermittently for the past 3 months Pt denies any syncope .Pt denies any headache. Pt denies any tunnel vision. pt states that he still feels not well overall. Pt was evaluated by neurology, GI, endo, neurology and none found anything significant. Pt recently had ? TIA? Pt had negative cardiac echo and also he was evaluated by neurology and had normal CTA of brain and was cleared of any neurological disorder. Pt states that he feels very frustrated since he continues to feel bad but nobody can figure it out back pain1 Pt has persisten t low back pain Pt denies any worsening pain Pt denies any loss of bladder control. Pt failed NSAID and ultram TIA Pertinent negati ves include bladder incontinence, gait disturbance, headache and memory impairment. Additional information: pt had EGD and colonoscopy recently and he was told he has no rahman . Pt has gastritis and he told me colonoscopy was ok. Pt is on omeprazole. anxiety1 Pt has anxiety P t denies any depression or any suicidal or homicidal thought .Pt denies any crying spells Pt takes xanax PRN TIA1 Pt c/o sudden on set of blurred vision, confusion, right arm and hand tingling, mild right hand weakness and slurred speech and difficulty making out words while at work 3 days ago. Pt just had lunch and was sitting when above occurred. Pt denies any headache. Pt denies any LOC Pt denies any dizziness. He was transferred to ER via ambulance His BP was 170/110. Pt states that symptoms lasted 45 mins and went away. Pt denies any chest pain or palpitation. Pt had normal EKG and head Ct and lab work. Pt was sent home and told that he had TIA? Pt currently denies any active symptoms Pt is back to baseline after 45 mins after the original episodes Pt could not return to work now due to above .Pt was told that he had TIA. Pt was told that he needs to see neurologist before clearance but he could not get in to see any neurologist .Pt needs FMLA form dizziness1 Pt c/o feeling h ot flush and redness around face and fatigue post food and sometimes symptoms occur 2-3 hours post meal and his glucose usually is around 80s. Pt denies chest pain or headache Pt states that meal with carb tends to make it worse Pt saw the tea bag machine tender who tested his A1c was 5.9 and he was started on metformin. Pt denies any diarrhea. Pt notices that his BG still goes up and down but the glucose does not go down as much anymore since on metformin. Pt was told by endo that his glucose goes up and down too much and metformin supposes to stabilize his glucose. Pt has been doing low carb diet and he has been eating more frequent meals. back pain1 Pt has persisten t low back pain Pt denies any worsening pain Pt denies any loss of bladder control. Pt failed NSAID and ultram anxiety1 Pt has anxiety P t denies any depression or any suicidal or homicidal thought .Pt denies any crying spells Pt takes xanax PRN Rahman Pt has Rahman P t takes omeprazole. Pt still has not done EGD and colonoscopy yet dizziness1 Pt has vague epi sodic dizziness, feeling of disorientation, blurred vision randomly throughout the day for several months. He has been having them 4-5 during the day Pt notices that his BG is usually running low around 80s when he feels above. Pt also had several occasions when he ate and his BG still drops and he feels above symptoms about 1/2 hours post meal. Pt does not recall type of the meal. He has been tracking his BG and usually is around 100-120 with occasional 80s. He has above episodes randomly and sometimes after meal so he has no idea what triggers it. He notices that his BG level fluctuates throughout the day. He denies any abdominal pain, nausea, vomiting, diarrhea ,He denies any post meal palpitation, diaphoresis, etc His MRI of brain is normal. His EEG was ok. Pt has gregorio with neurology this sunday. dizzy1 Pt c/o intermitt ent tunnel vision, feeling disoriented, feeling poor balance, on and off, worse with moving objects like moving car, for two months Pt denies any syncope Pt denies any palpitation, chest pain. Pt has above episodes almost daily Pt can't find any common trigger factor. his BG was 87 during one of the episodes. Pt denies any head injury, Pt also has sharp headache temporal area when he has above episodes Pt feels rather bad when above occurs and he feels that he loses control of his body and he almost went to ER multiple times. Pt absolutely denies any orthostasis. Pt denies any above episodes when he stands up. Pt also states that both of his arm feels abnormal. Pt denies any weakness, numbness or tingling. Pt is very vague Pt had benign sinus CT and also lab. His t level is not back yet. Pt feels spacy. Pt feels poor coordination around arms. Pt does not use drug. Pt denies any acute symptoms barrett1 Pt has rahman a nd also tubular adenoma. Pt just seen Dr valdez recently and he will arrange for EGD and colonoscopy soon. Pt is on omeprazole spacy1 Pt feels intermi ttent poor balance, spacy feeling, mild dizziness without vertigo, pressure behind his eyes and difficulty with focus with his vision on and off for two months. pt denies chest pain or palpitation or sob Pt denies any syncope. Pt denies any trigger factor. Pt states that usually moving around tends to cause it but he denies any positional vertigo. Pt feels some sinus pressure as well. pt states that sometimes standing up quickly makes him dizzy during last 1-2 months. He denies any diaphoresis or chest pain or syncope or sob chronic pain1 Pt has chronic l ow back pain and also anxiety pt denies any worsening symptoms Pt doing ok with norco and xanax PRn sick1 Pt feels dizzine ss, numbness of hand and feet for 2-3 weeks. pt denies any vertigo. Pt c/o mild headache during dizziness and lightheadedness. Pt denies any syncope Pt denies head injury or waking upa t night with headache Pt notice above around once per day. Pt denies any nausea vomiting, vision change Pt does have some sinus symptoms and he notices some puffiness and some crud around his eye every morning Pt has been sneezing a lot. Pt denies any coughing Pt denies any fever, chill. Pt denies any ear pain or tinnitus. Pt has been sneezing a lot and he notices puffiness around his eyes also PSA Pt has intermitt ent elevation of PSA Pt denies any urinary symptoms Pt sees urology PT never had biopsy Pt had negative prostate exam by finger back pain1 Pt has chronic l ow back pain Pt denies any worsening pain Pt denies any loss of bladder control anxiety1 Pt has chronic a nxiety Pt denies any depression or any suicidal thought Pt denies any crying spells Rahman Pt has rahman e sophagus and also colon polyp Pt still has not made gregorio with Dr. Valdez Pt takes omeprazole and doing ok Pt denies any Gi bleeding urine1 Pt notices malod ors urine, yellow color urine for the past two weeks pt denies any urinary frequency and urgency. Pt denies any dysuria, pt denies any flank pain. pt has not tried any new meds or any flank pain GERD1 Pt has rahman e sophagus with tubular adenoma. Pt is on omeprazole webster pt failed zantac pt has daily GERD without omeprazole. pt still has not set up EGd and colonoscopy yet Anxiety1 Pt has chronic a nxiety pt denies any depression or any suicidal thought. Pt denies any crying spells. Pt doing ok with xanax PRn back pain1 Pt has chronic l ow back pain due to DDD. Pt denies any worsening pain Pt denies any loss of bladder control/ Pt failed NSAID and ultram PHysical Pt needs annual physical pt has Rahman and chronic low back pain and anxiety. Pt denies any depression or any suicidal thought, Pt has not made gregorio with dr. valdez yet .Pt has Rahman and she takes omeprazole and doing ok. Pt denies any GI issue. Pt denies any other complaints BPH1 Pt has fluctuati ng PSA. Pt is seeing urology. Pt just had normal prostate exam by urology and he had PSA done which was 3.8 last week. Pt denies any urinary symptoms back pain1 Pt has chronic l ow back pain Pt has DDD Pt denies any worsening pain. pt denies any loss of bladder control. pt has mild sciatica. Pt failed ultram and NSAID anxiety1 Pt has chronic a nxiety. Pt denies any depression or any suicidal thought. Pt denies any crying spells. Pt doing ok with xanax PRn GERd1 Pt has rahman e sophagus. pt takes omeprazole. Pt was given phone number for Dr. Valdez but he has not contact him yet. Pt is noncompliant. Pt doing ok with omeprazole. Barrett1 Pt has rahman e racielagus. Pt is on omeprazole 20 mg daily and doing ok Pt denies any gerd Pt denies any nausea, vomiting pt is noncompliant with EGD anxiety1 Pt has chronic a nxiety. Pt denies any depression or any suicidal thought Pt denies any crying spells back pain1 Pt has chronic l ow back pain pt denies any sciatica. pt denies any loss of bladder control. Pt failed NSAID and ultram Pt doing ok with norco PRN GERD1 Pt has Rahman e racielagus Pt has been taking omeprazole 40 mg daily for several years. Pt still has not made to GI for EGD yet. Pt denies any GI issue now back pain1 Pt has chronic l ow back pain. Pt denies any worsening pain, Pt denies any loss of bladder control. Pt has 6/10 pain. anxiety1 Pt has chronic a nxiety. Pt denies any depression or any suicidal thought. pt denies any crying spells. Pt takes xanax PRn and doing ok. PSA Pt has elevated PSA Pt denies any BPH symptoms. Pt needs to see urology but he missed his appointment. Pt denies any urinary symptoms PHysical Pt needs annual physical. pt has chronic GERD due to eloise .Pt takes omeprzole. Pt doing ok. Pt denies any abd pain or nausea. Pt has chornic low bakc pain. Pt takes norco PRN for pain. Pt also has chronic anxiety. Pt denies any depression or any suicidal thought. Pt denies any crying spells. Pt has history of elevated PSA. Pt denies any uirnary symptoms. Pt denies any othe rcomplaints back pain1 Pt has chronic l ow bcak pain. pt denies any worsening pain or any loss of bladder control. Pt has 7/10 pain anxizety1 Pt has chronic a nxiety. Pt denies any depression or any suiciadl thought. Pt denies any crying spells back apin1 Pt has chronic l ow back pain. pt denies any worsenign pain or any loss of bladder control. Pt failed NSAID. Pt takes norco PRN and doing ok anxiety1 Pt has chornic a nxiety. Pt denies any depression or any suicidal thought. Pt denies any cyring spells Rahman Pt takes omerpaz ole. His mag is ok. Pt has not done EGD yet. Pt denies any symptoms hep c Pt needs hep C s creening Pt does not use IV drug anxiety1 Pt has chronic a nxiety PT deneis any depression or any sucidal thought Pt denies any crying spells Pt takes xanax PRN and doing ok. back pain1 Pt has chronic l ow back pain Pt denies any loss of bladder control. Pt denies any wrosening pain Pt has DDD GERD1 Pt has rahman P t takes omeprazole. Pt has EGD scheduled next month Pt denies any abd pain or GERD symptoms back pain1 Pt has chronic l ow back pain. Pt denies any loss of bowel or bladder control. Pt denies any worsening pain Pt denies any numbness. Pt has 6/10 pain anxiety1 Pt has chronic a nxiety. Pt denies any depression or any suicidal thought. Pt denies any cyring spells colon polyp Pt has tubular a denoma. Pt denies any gi bleeding Physical Pt needs annual physical. Pt has GERD and he takes omeprazole and donig well. Pt denies any abd pain or GERD. Pt has chronic anxiety. Pt denies any depression or any suicidal thought. Pt takes xanax PRn and doing ok. Pt also has not had any diarrhea. Pt was treated for Cdiff recenlty. Pt denies any other complaints. Pt denies any sciatica and loss of bladder control GERD1 Pt has rahman P t has omeprazole. Pt was treated with hpylori but his repeat urea breath test still postivie recenlty but he was never treated again for Hpylori. Pt also had c.diff recenlty and he had to see ID and was on 6 weeks of vancomycin and his diarreha resolved but he was never retested. Pt denies any abd pain back apin1 Pt has chronic l ow back apin. Pt denies any worsening pain. PT denies any loss of bowel or bladder control. Pt denies any sciatica or any numbness anxiety1 Pt has chronic a nxiety PT denies any depressin or any suicidal thought Pt denies any crying spells C, diff Pt recently had bloody stool and diarrhea and he was diagnosed with c.diff recently and was started on flagyl. Pt went to ER via EMS last morning due to sudden onset of tingling left thumb, then both hand and both feet. Pt did have some difficulty with focus and concentrate and finding words to speak. Pt denies any dizziness. Pt went to Er and was told he probably had some reaction. He has been feeling fine now without any recurrent symptmos back pain1 Pt has chronic l ow back pain and aniety. Pt takes norco and xanax and doign ok. Pt denies any suicidal or homicidal thought. Pt denies anyw orsening pain Rahman Pt has Rahman a nd Hpylori. Pt states that he has occassional breakthrough GERd symptoms on 20 mg omeprazole. Pt denies any abd pain. Pt was treated for Hpylori back apin Pt has chronic l ow back pain. Pt denies any loss of bowel or bladder control. Pt denies any worsening apin anxiety1 Pt has chronic a nxiety. Pt denies any depression or any suicidal thought Pt takes xanax PRn and doing ok. Pt denies any crying spells PHysical Pt needs annual physical. Pt has chronic LBP. pt denies any sciatica pT denie any loss of bowel or bladder control. Pt also has chronic anxiety Pt denie any depression or any suicidal thought. P ttakes xanax PRN Pt has GERD dialy and he takes omeprazole. Pt denies any abd pain or GERD symptoms Pt denies any other complaints lumbago1 Pt has chronic l ow back pain. Pt denies any scaiatica. Pt denies any loss of bowel or bladder control. Pt has intermittent flares up. Pt just got over bad episode recently. Pt doing ok now anxiety1 Pt has chronic a nxiety. Pt denies any depression or anys uicidal thought. Pt takes xanax PRN. Pt doing ok GERD1 PT has GERd. Pt takes omerpole and doing ok. Pt denies any abd pain or GERd symptoms. Pt used to takes a lot of tums but he has not used any sicne on omeprazole back pain Additional infor mation: Pt has chronic low back pain. Pt denies any sciaica. Pt denies any loss of bowel or bladder control. GERD Associated sympt oms include back pain and heartburn. Pertinent negatives include blood in stool, constipation, diarrhea, dyspnea, fever, hematuria, nausea, rash, vomiting, weight gain and weight loss.Additional information:Pt has GERd pt takes omeprazole and has no symptoms. Pt deneis any GERd or abd pain. anxiety The patient pres ents with anxious/fearful thoughts but denies fatigue. The patient denies any nausea, urinary frequency, vomiting and weight gain. Additional information: Pt has chornic anxiety Pt deneis any depression or any sucidal thought. Pt atkes xanax PRn. Instructions Date Instruction Additional Infor ese Increase physical activity Relat ed to Dumping syndrome Special diet education Related t o Body mass index (BMI) 28.0-28.9, adult Increase physical activity Relat ed to Dizziness Weight management Related to Diz ziness Weight management Related to Diz ziness Increase physical activity Relat ed to Dizziness Special diet education Related t o Body mass index (BMI) 28.0-28.9, adult Increase physical activity Relat ed to Rahman's esophagus without dysplasia Special diet education Related t o Body mass index (BMI) 27.0-27.9, adult Special diet education Related t o Body mass index (BMI) 27.0-27.9, adult Quit smoking Related to Gener alized anxiety disorder Special diet education Related t o Body mass index (BMI) 27.0-27.9, adult Quit smoking Related to Polyp of colon Special diet education Related t o Body mass index (BMI) 27.0-27.9, adult Increase physical activity Relat ed to Encounter for general adult medical exam w abnormal findings Weight management Related to Enc ounter for general adult medical exam w abnormal findings Special diet education Related t o Body mass index (BMI) 27.0-27.9, adult Quit smoking Related to Gener alized anxiety disorder Special diet education Related t o Body mass index (BMI) 26.0-26.9, adult Quit smoking Related to Barney tt's esophagus without dysplasia Prescribed Activity and Exercise Education Related to Dietary Surveillance and Counseling Prescribed Diet Educ ation/Lifestyle Education Regarding Diet Related to Dietary Surveillance and Counseling Quit smoking Related to Encou nter for general adult medical exam w abnormal findings Prescribed Activity and Exercise Education Related to Dietary Surveillance and Counseling Prescribed Diet Educ ation/Lifestyle Education Regarding Diet Related to Dietary Surveillance and Counseling Quit smoking Related to Chron ic pain syndrome Quit smoking Related to Chron ic pain syndrome Weight management Related to Chr onic pain syndrome Prescribed Activity and Exercise Education Related to Dietary Surveillance and Counseling Prescribed Diet Educ ation/Lifestyle Education Regarding Diet Related to Dietary Surveillance and Counseling Increase physical activity Relat ed to Chronic pain syndrome Prescribed Activity and Exercise Education Related to Dietary Surveillance and Counseling Prescribed Diet Educ ation/Lifestyle Education Regarding Diet Related to Dietary Surveillance and Counseling Physical activity counseling Rel ated to Dietary surveillance counseling Decrease caloric intake Related to Dietary surveillance counseling Dietary counseling Related to Di etary surveillance counseling Decrease caloric intake Related to Dietary surveillance counseling Dietary counseling Related to Di etary surveillance counseling Decrease caloric intake Related to Dietary surveillance counseling Dietary counseling Related to Di etary surveillance counseling Decrease caloric intake Related to Dietary surveillance counseling Dietary counseling Related to Di etary surveillance counseling Decrease caloric intake Related to Dietary surveillance counseling Assessments Type Assessment Date assessment Mixed hyperlipidemia assessment Hyperglycemia assessment Iron deficiency anemia assessment Elevated prostate specific antig en [PSA] assessment Generalized anxiety disorder Dec assessment Dumping syndrome assessment Chronic pain syndrome assessment Rahman's esophagus without dysp lasia Mental Status Date Cognitive Assessment Orientation - [place] ed to time, place, person, situation.
--- OUTSIDE RECORDS SUMMARY | 2025-01-19 13:41 | XMS_ITS | Referral Summary ---
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 Name Role Phone Mateusz Greene MD Primary Care Provider [phone] Allergies No known active allergies Medications HYDROcodone-shira taminophen (NORCO) 5-325 mg per tablet Take 1 tablet by mouth every 6 hours 08/26/2019 Active omeprazole (PriLOSEC) 20 mg capsule Take 1 capsule by mouth daily 05/06/2019 Active ALPRAZolam (XANAX) 1 mg tablet Take 1 mg by mouth nightly as needed for anxiety Active metFORMIN XR (GLUCOPHAGE XR) 500 mg 24 hr tablet Take 500 mg by mouth daily 02/16/2020 Active Active Problems Problem Noted Date Diagnosed Date Migraine with aura, not intractable 04/05/2020 Controlled type 2 diabetes m ellitus without complication, without long-term current use of insulin (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 Gender Identity Male 04/05/2020 12:32 PM CDT Sexual Orientation Straight 04/05/2020 12 :32 PM CDT Last Filed Vital Signs Vital Sign Reading Time Taken Comments Blood Pressure 100/72 04/28/2020 3:06 PM CDT Pulse 99 04/28/2020 3:06 PM CDT Temperature 17.8 C (64 F) 04/28/2020 3:06 PM CDT Respiratory Rate 18 04/28/2020 3:06 PM CDT Oxygen Saturation 95% 04/28/2020 3:06 PM CDT Inhaled Oxygen Concentration - - Weight 83.5 kg (184 lb) 04/28/2020 3:06 PM CDT Height 182.9 cm (6') 04/28/2020 3:06 PM CDT Body Mass Index 24.95 04/28/2020 3:06 PM CDT Plan of Treatment Not on file Insurance [address] [employer] [employer] [place] Care Teams Welder Setter Electron Beam 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
--- OUTSIDE RECORDS SUMMARY | 2025-01-19 13:41 | XMS_ITS | CONTINUITY OF CARE DOCUMENT ---
Author Name [email or web address] Address Unknown Organization [facility] Address [address] [place] [address] [address] [place] [address] Phone [phone] Care Team Providers Care Bilingual Loan Processor Name Role Phone Ivan AYALA, Lilly Unavailable [phone] MARICRUZ LOPEZ MD Unavailable [phone] NIKITA FRANZ MD Unavailable [phone] PROBLEMS Condition Status Date Provider Notes Cardiology examination active Lilly wills MD Prediabetes active Lilly Love MD Dizziness active Lilly Love MD Mitral regurgitation, mild active Lilly Love MD ENCOUNTERS Date Type Provider Location Encounter Diag nosis - In-person encounter Office Visit Lilly Love MD [facility] Cardiology examinationPrediabetesDizzinessMitral regurgitation, mild VITAL SIGNS Date Observation Value Provider Body Mass Index (Ratio) 26.04 kg/m2 Pankaj n Kyte blood pressure, resting No Brit mckenzie Block pulse rate 88 /min Shannan Block blood pressure, diastolic 82 mm[Hg] Br ittany Block blood pressure, systolic 118 mm[Hg] Sirisha ttany Block oxygen saturation, oximetry 98 % Shannan Block height E&M 72 [in_i] Shannan Block weight E&M 192 [lb_av] Shannan Block respiratory rate E&M 16 /min Brittan y Block temperature E&M 97.9 [degF] Shamika Tanks olman ALLERGIES No Known Drug Allergies HISTORY OF MEDICATION USE Medication Status Instructions Dates Provider Indications Com ments METFORMIN HCL ER 500 MG ORAL TABLET EXTENDED RELEASE 24 HOUR active TAKE 1 TABLET BY MOUTH TWICE DAILY BEFORE MEAL(S) 3 Shannan Block #60, 30 days supply, Prescribed by MARICRUZ LOPEZ, Filled 02/16/2020 HYDROCODONE-NOEL TAMINOPHEN 5-325 MG ORAL TABLET active TAKE 1 TABLET BY MOUTH EVERY 6 HOURS NEEDED FOR PAIN AVOID DRIVING OR OPERATING MACHINES 6 Shannan Block #90, 23 days supply, Prescribed by NIKITA FRANZ, Filled 02/19/2020 ALPRAZOLAM 1 MG ORAL TABLET active TAKE 1 TABLET BY MOUTH EVERY 4 TO 6 HOURS NEEDED FOR ANXIETY AVOID DRIVING OR OPERATING MACHINES 6 Shannan Block #60, 10 days supply, Prescribed by NIKITA FRANZ, Filled 02/19/2020 SOCIAL HISTORY Date Observation Value Provider number of grandchildren Lilly Alonzo social history E&M S moking History: Afua sue is a former smoker. Nathan Alonzo social history reviewed E&M reviewed - no changes required [facility] alcohol use yes [facility] smoking, year quit 2018 [facility] cigarette use yes [facility] smoking status Former smoker Shannan Johanna askew FAMILY HISTORY Family Member Condition Aunt Family History of Di abetes: Paternal Grandmother Family History of D iabetes: Father Family History Unkno wn Mother Family History Unkno wn INSURANCE PROVIDERS Payer name Policy type / Coverage type [place] red green party ID [facility] [id number] 1 ADVANCE DIRECTIVES Name Date DISCUSSED - NO DECISION MADE TREATMENT PLAN Date Name Performer Cardiology :Seen on echo. OF no hemodynamic significance. I feel this has no impact on his symptoms. Lilly Love MD Cardiology :On metformin. Follow s endocrinology. Lilly Love MD Cardiology :His symp toms of dizziness persist and are usually of sudden onset and resolve before he reaches the ER. Extensive investigations reveal no abnormality. As his symptoms persist and do affect his day to day activity, I feel that he may benefit from evaluation of his autonomic nervous system. A referral to [place] [facility] where they could assess this may be of benefit. Lilly Love MD HISTORY OF PROCEDURES Procedure Date Procedure Name Provider Procedure Notes S meghna EKG Lilly Love MD complet ed
--- OUTSIDE RECORDS SUMMARY | 2025-01-19 13:41 | XMS_ITS | Clinical Summary ---
Author Organization [facility] Medical Office Building B Address [address] [place] [address] Care Team Providers Care Hadoop Developer Name Role Phone Mateusz Greene MD Primary Care Provider [phone] Allergies No known active allergies Medications HYDROcodone-shira [...] complication, without long-term current use of insulin ([facility]) 04/05/2020 Dizziness and giddiness 09/26/2019 Surgical History Surgery Date Site/Laterality Comments BREAST BIOPSY 11/26/2010 - 11/25/2011 Left CYST REMOVAL 11/26/2007 - 11/25/2008 testicular HERNIA REPAIR 1989, 2009 Medical History Medical History Date Comments TIA (transient ischemic attack) 02/16/2020 Pre-diabetes Stroke (HCC) Anxiety Family History Medical History Relation Name Comments No Known Problems Brother 1 No Known Problems Brother 2 No Known Problems Daughter 1 No Known Problems Daughter 2 Cancer Father Prostate cancer Father Cancer Mother Lung cancer Mother No Known Problems Sister Relation Name Status Comments Brother 1 Alive Brother 2 Alive Daughter 1 Alive Daughter 2 Alive Father Alive Mother Sister Alive Social History Tobacco Use Types Packs/Day Years Used Date Smoking Tobacco: Former Cigars 2 2018 Smokeless Tobacco: Never Alcohol Use Standard Drinks/Week Comments Yes 0 (1 standard drink = 0.6 oz pur e alcohol) 6 per month Personal Safety Answer Date Recorded Getting School Help Needed Not on file 02/08 Sex and Gender Information Value Date Recorded Sex Assigned at Not on file Legal Sex Male 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
--- OUTSIDE RECORDS SUMMARY | 2025-01-19 13:41 | XMS_ITS | Data Portability ---
Author Organization [facility], Main Office Address [address] [place] [address] Care Team Providers Care Decal Decorator Name Role Phone NIKITA FRANZ Primary Care Provider [phone] Assessment No assessment recorded. Plan of Treatment Reminders Order Date Submit Date Provider Last Modified By Organization Details Last Modified Time Details Appointments None recorded. Lab vitamin B12 + folate, serum or blood 2022 023 [facility] (Lab), [address] [place] [address], [phone], 3 10:19:39 HbA1c (hemoglobin A1c), blood [address] (Lab), [address] [place] [address], [phone], 3 17:18:40 insulin, serum 2022 023 [facility] (Lab), [address] [place] [address], [phone], 3 12:45:10 T4, free, serum 2022 023 [facility] (Lab), [address] [place] [address], [phone], 3 10:19:39 TSH, serum or plasma 2022 023 [facility] (Lab), [address] [place] [address], [phone], 3 10:19:39 Referral None recorded. Procedures None recorded. Surgeries None recorded. Imaging None recorded. Medication Orders cyanocobala min (vit B-12) 1,000 mcg/mL injection solution 2022 023 [facility] [place], [address], 3 16:25:43 cyanocobala min (vit B-12) 1,000 mcg/mL injection solution [address] [facility] [place], [address], 3 21:05:21 Patient TargetsNo targets recorded. Patient InstructionsNo instructions recorded. Reason for Referral None Reported. Results Created Date Observation Date Name Description Value Unit Range Abnormal Flag Note LastModifiedBy Organization Detail LastModifiedTime Result Notes None recorded. Problems Name Problem SNOMED Code Status Onset Date Resolution Date Notes Provider Name and Address Organization Details Recorded Time Hypoglycemia 505571490 Active 2018 Not Available [facility] 3 08:20:45 Prediabetes 829189937 Active 2022 Meche Sandhu MD [address], [address] , [employer] 3 17:15:13 Vitamin B12 deficiency (non anemic) 01022505 Active 2022 Meche Sandhu MD [address], [address] , [employer] 3 17:15:27 Problem Notes None recorded. Medical Equipment None Reported. Allergies No known drug allergies Medications Name Sig Start Date Stop Date Status Note LastModified by Organization Details LastModified Time doxycycline hyclate 100 mg capsule TAKE 1 CAPSULE BY MOUTH ONCE DAILY 04/19 completed Not Available Not Available Not Available clindamycin HCl 300 mg capsule TAKE 1 CAPSULE BY MOUTH EVERY 8 HOURS FOR 10 DAYS 04/19 completed Not Available Not Available Not Available alprazolam 1 mg tablet TAKE 1 TABLET BY MOUTH EVERY 4 TO 6 HOURS NEEDED FOR ANXIETY AVOID DRIVING OR OPERATING MACHINERY active Not Available Not Available No t Available hydrocodone 5 mg-acetamin ophen 325 mg tablet TAKE 1 TABLET BY MOUTH EVERY 6 HOURS NEEDED FOR PAIN AVOID DRIVING OR OPERATING MACHINERY active Not Available Not Available No t Available prednisone 20 mg tablet TAKE 3 TABLETS BY MOUTH ONCE DAILY FOR 3 DAYS AND THEN 2 ONCE DAILY FOR 3 DAYS AND THEN 1 ONCE DAILY FOR 3 DAYS 04/19 completed Not Available Not Available Not Available prednisone 5 mg tablet TAKE 2 TABLETS BY MOUTH ONCE DAILY IN THE MORNING DAYS 1-4 THEN 1 TABLET IN THE MORNING DAYS 5-7 04/19 completed Not Available Not Available Not Available metronidazo le 500 mg tablet 07/25 completed Not Available Not Available Not Available tamsulosin 0.4 mg capsule TAKE 1 CAPSULE BY MOUTH AT BEDTIME active Not Available Not Available No t Available cyanocobala min (vit B-12) 1,000 mcg/mL injection solution Inject 1 mL every week by subcutane ous route in the morning for 90 days. active Not Available Not Available No t Available promethazin e 25 mg tablet 07/25 completed Not Available Not Available Not Available omeprazole 20 mg capsule,del ayed release TAKE 1 CAPSULE BY MOUTH ONCE DAILY BEFORE A MEAL active Not Available Not Available No t Available cefdinir 300 mg capsule 10/10 completed Not Available Not Available Not Available fluticasone propionate 50 mcg/actuati on nasal spray,suspe nsion USE 2 TO 3 SPRAY(S) IN EACH NOSTRIL TWICE DAILY active Not Available Not Available No t Available metformin ER 500 mg tablet,exte nded release 24 hr TAKE 1 TABLET BY MOUTH TWICE DAILY BEFORE MEAL(S) 04/19 completed Not Available Not Available Not Available ipratropium bromide 21 mcg (0.03 %) nasal spray USE 2 SPRAY(S) IN EACH NOSTRIL 2 TO 3 TIMES DAILY active Not Available Not Available No t Available amoxicillin -potassium clavulanate 1,000 mg-62.5 mg tablet,ext. rel 12hr 07/25 completed Not Available Not Available Not Available GaviLyte-N 420 gram oral solution 07/25 completed Not Available Not Available Not Available BD Insulin Syringe Ultra-Fine 1 mL 31 gauge x /16 USE 1 SYRINGE ONCE A WEEK active Not Available Not Available No t Available ID NOW COVID-19 Test Kit TEST DIRECTED TODAY 09/19 /2023 completed Not Available Not Available Not Available FreeStyle Keith 2 Sensor kit CHANGE SENSOR EVERY 14 DAYS active Not Available Not Available No t Available FreeStyle Keith 2 [place] USE DIRECTED active Not Available Not Available No t Available Vitals Date Recorded Body weight Body temperature Respiratory rate Body mass index (BMI) Body height Heart rate Systolic blood pressure Diastolic blood pressure Provider Name and Address Organization Details Last Updated DateTime 3 59214.5 6 g 97.8 [degF] 18 /min 27.7 kg/m2 182.88 cm 62 /min 120 mm[Hg] 76 mm[Hg] MORE Alaniz [facility] [employer] [facility] 3 16:53:34 Date Recorded Body height Body mass index (BMI) Body weight Body temperature Respiratory rate Heart rate Systolic blood pressure Diastolic blood pressure Provider Name and Address Organization Details Last Updated DateTime 3 182.88 cm 26.7 kg/m2 92571.7 g 97.8 [degF] 12 /min 68 /min 134 mm[Hg] 83 mm[Hg] Kate Wilhelm RN [facility] [employer] [facility] 3 16:04:36 Social History None recorded. Functional Status None recorded. Mental Status None recorded. Family History Nothing Reported. Medical History No medical history recorded. 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 He did not like metformin as it did cause peripheral neuropathy . He would like avoid pharmacoth erapy at this time. recommende d glucose support/na tural insulin laser beam trim operator s to help regulate glucose metabolism . Discussed carb counting and how to read food labels. Recommende d patient to utilize the diabetesfo [employer]SED Web from the ADA website to help with food preparatio n as this presents ideal carb content per meal so this will make carb counting much easier for patient. Recommende d he incorporat e natural insulin laser beam trim operator s such as pears, apples, cinnamon, herve and sweet potatoes to help mobilize his endogenous insulin. Recommende d up to 150 minutes of moderate level activity/e xercise weekly. Vitamin B1 2 deficiency (non anemic) 59215246 E53.8 Trial on B12 injections 1000 mcg once weekly for fatigue and neuropathy . Spent up to 28 minutes preparing to see the patient (eg, review of tests), obtaining and/or reviewing separately obtained history, performing a medically appropriat e examinatio n and evaluation , counseling and educating the patient, ordering medication s, tests, along with documentin g clinical informatio n in the electronic health record, independen pedro interpreti ng results and communicat ing results to the patient. RTC in 6 months. Patient was provided a handwritte n lab order which contains our fax number. If he chooses to go outside of the [facility] system to obtain labwork he was advised to provide our fax number and my informatio n to the lab he will be obtaining labwork from in order to have his labs properly forwarded over for me to review so there is no loss of follow up due to use of outside network. He was also advised to contact our clinic informing us that he has completed his labwork so we are aware we will need to reach out to the appropriat e laboratory to request his results be forwarded to us so I might have the ability to review and make further medical decision making in his case. He voiced understand ing. 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 Continue on glucose one support as he didn't do well on metformin. recommende d glucose support/na tural insulin laser beam trim operator s to help regulate glucose metabolism . Recommende d he incorporat e natural insulin laser beam trim operator s such as pears, apples, cinnamon, herve and sweet potatoes to help mobilize his endogenous insulin. Recommende d up to 150 minutes of moderate level activity/e xercise weekly. Avoidance of simple sugars/ref ined sugars and minimize processed foods. Vitamin B1 2 deficiency (non anemic) 00645097 E53.8 Continue on B12 injections 1000 mcg once weekly for fatigue and neuropathy . Spent up to 25 minutes preparing to see the patient (eg, review of tests), obtaining and/or reviewing separately obtained history, performing a medically appropriat e examinatio n and evaluation , counseling and educating the patient, ordering medication s, tests, along with documentin g clinical informatio n in the electronic health record, rajeshen pedro interpreti ng results and communicat ing results to the patient. Patient can be followed by PCP - she/he is aware of my resignatio n and last day of September 07. If needed his/her PCP can refer patient to another endocrinol ogist in the area. All questions /concerns answered and refills necessary at visit today. Health Concerns Section Related Observation LastModified by Organization Detai ls LastModified Time None Recorded Concern Status LastModified by Organization Details LastModified Time None Recorded Advance Directives Directive None Recorded Payers Encounter Date Sequence Insurance Name Policy Number Policy Couch Covered Member ID Couch Member ID Guarantor Name 04/19/2023 1 [employer] [id number] Eduar Richardson [id number] Eduar Richardson 08/14/2023 1 [employer] [id number] Eduar Richardson [id number] Eduar Richardson Notes Date Note Type Note Provider Name and Address Organization Details Recorded Time 04/19/2023 text/html 58 yo male comes in for follow up in management of prediabetes, reactive hypoglycemia, and B12 def. last seen two years ago/ early 2020 at that time continued metformin He ended up stopping the metformin. He was having numbness and tingling in hands and feet. He didn't feel like he was tolerating the medication well. He didn't feel like his sugars were in ideal range. He has freeLavanteyle keith sensor- he will get some drops in the 50s. He did have spaghetti/low carb right around He does take B12 1000 mcg once daily. He does drop low after having beer. labs from 01/18:190/60/47/106T SH of 1.730 uIU/mlFT4 of 1.17 ng/dLa1c 5.7%PTH 40.9 pg/MLinsulin 3.7 uU/ml Meche Sandhu MD [address], [facility] [address], [place], [address], [email or web address] 04/19/2023 21:08:13 08/14/2023 text/html 58 yo male comes in for follow up in management of prediabetes (A1C of 5.6%) and B12 deficiency. last /initial visit in March at that time we continued natural insulin sensitizers and started B12 injections. He feels better with the B12 injections and has less neuropathy. He is taking more natural sensitizers- he will drop on occasion after eating-alarm sets off at 75 mg/dL. Usually will drop if has more of a sugar load in his diet. Will drop really quick if he beckett a beer. He takes protein shakes once daily-30 grams of protein and 2 grams of carbs/equate from [employer]. otherwise sugars running 90 mg/dL up to 120 mg/dL consistently with few lows depending on meal intake. labs from 08/10/23:TSH of 1.080 uIU/mlFT4 of 1.25 ng/dLa1c of 5.6%B12/folate normalinsulin pending Meche Sandhu MD [address], [facility] [address], [place], [address], [employer] 08/14/2023 16:34:02
== END 2025-01-19 11:53 | disposition home or self-care (01) ==
PROVIDERS: PCP Emergency Medicine; Visit Provider Urology
DX: N13.30 Unspecified hydronephrosis (principal); N32.3 Diverticulum of bladder; N40.0 Benign prostatic hyperplasia without lower urinary tract symptoms; N20.0 Calculus of kidney; R91.1 Solitary pulmonary nodule
CPT/HCPCS: 74176

== ENCOUNTER 2025-01-22 02:18 | Day surgery (SDC) | payer BC, SELFPAY ==
[2025-01-20 09:29] VITALS: BMI 27.1
--- NOTE | 2025-01-20 09:38 | PC.NURSE ---
Report to the Outpatient Waiting Room, entrance under the green pavilion located off [facility], at time _1100_ on date _[phone]_. Planned Procedure Time: _1pm_.? Time changes happen often and if your time is changed the preop area will call you the afternoon before. - You and your visitor will be asked to self-screen and do not enter if you have any COVID symptoms. Please call surgeon if you need to reschedule. - A mask is optional within the hospital at this time. Patients may have clear liquids (water, carbonated beverages, clear teas, apple juice) until 3 hours prior to surgery with a maximum of 20 ounces. - No food from midnight until time of surgery and no smoking, or chewing tobacco (or any form of nicotine). No chewing gum, candy or mints. Take only the following medications with a SIP of water on the morning of surgery: ___Flonase and if needed Hydrocodone and or Alprazolam____ DO NOT STOP ANY OF YOUR OTHER PRESCRIPTION MEDICATIONS PRIOR TO SURGERY EXCEPT THE FOLLOWING Hold all vitamins and supplements for 3 days per anesthesiologist. Medications to discontinue per physician ___Aspirin only if told by Dr Martines office.___ Date to take last dose Please no make-up, nail french, hairspray, perfume, deodorant, or body powder the day of surgery.? No jewelry (including any body piercings) or valuables the day of surgery, leave them at home.? Please take a shower or bath the night before, or the morning of, surgery with an antibacterial soap.? Wear comfortable, loose fitting clothing.? - Jewelry must be removed prior to entering the operating room.? Rings and piercings that are not removed may be cut off. - The hospital will not accept responsibility for valuables.? - Please leave all valuables, including medications, at home the day of surgery. If you are going home after surgery, a licensed lease purchase driver must drive you home.? - NO public transportation without another adult if you receive anesthesia. - We recommend that an adult stay with you for 24 hours following discharge. - We also recommend that you do not drive, make important decision, drink alcoholic beverages, or take any drugs that were not prescribed by your health care provider for at least 24 hours after your discharge time. Follow any additional instructions given to you from your surgeon. Telephone instructions given to __Mark__and asked if any additional questions and then verbalized understanding. Patient advised to call surgeon office or pre surgery nurse liaison [phone] if any additional questions.
[2025-01-22] VITALS (7 sets, daily range): BP systolic 111–158; BP diastolic 75–90; PULSE 51–75; RESP 10–20; TEMP 36.3–36.7; O2SAT 95–98
--- OUTSIDE RECORDS SUMMARY | 2025-01-22 02:21 | XMS_ITS | CONTINUITY OF CARE DOCUMENT ---
Author Name porfiriomukeshfranchesca Address Unknown Organization [facility] Address [address] [place] [address] [address] [place] [address] Phone [phone] Care Team Providers Care Back End Web Developer Name Role Phone Ivan AYALA, Lilly Unavailable [phone] MARICRUZ LOPEZ MD Unavailable [phone] NIKITA FRANZ MD Unavailable [phone] PROBLEMS Condition Status Date Provider Notes Cardiology examination active Lilly wills MD Prediabetes active Lilly Love MD Dizziness active Lilly Love MD Mitral regurgitation, mild active Lilly Love MD ENCOUNTERS Date Type Provider Location Encounter Diag nosis - In-person encounter Office Visit Lilly Love MD [facility] Cardiology examinationPrediabetesDizzinessMitral regurgitation, mild VITAL SIGNS [...] reviewed E&M reviewed - no changes required [facility] [place] alcohol use yes [facility] smoking, year quit 2018 [facility] cigarette use yes [facility] smoking status Former smoker Shannan Johanna askew FAMILY HISTORY Family Member Condition Aunt Family History of Di abetes: Paternal Grandmother Family History of D iabetes: Father Family History Unkno wn Mother Family History Unkno wn INSURANCE PROVIDERS Payer name Policy type / Coverage type [place] party ID [facility] [id number] 1 ADVANCE DIRECTIVES Name Date DISCUSSED - [...] his autonomic nervous system. A referral to [facility] where they could assess this may be of benefit. Lilly Love MD HISTORY OF PROCEDURES Procedure Date Procedure Name Provider Procedure Notes S meghna EKG Lilly Love MD complet ed
--- OUTSIDE RECORDS SUMMARY | 2025-01-22 02:22 | XMS_ITS | Referral Summary ---
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
--- OUTSIDE RECORDS SUMMARY | 2025-01-22 02:22 | XMS_ITS | Clinical Summary ---
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
--- OUTSIDE RECORDS SUMMARY | 2025-01-22 02:22 | XMS_ITS | Data Portability ---
Author Organization [facility], Main Office Address [address] [place] [address] Care Team Providers Care Design Technician Name Role Phone NIKITA FRANZ Primary Care Provider [phone] Assessment No assessment recorded. Plan of Treatment Reminders Order Date Submit Date Provider Last Modified By Organization Details Last Modified Time Details Appointments None recorded. Lab vitamin B12 + folate, serum or blood 2022 023 [facility] (Lab), [address] [place] [address], [phone], 3 10:19:39 HbA1c (hemoglobin A1c), blood [address] (Lab), [address] [place] [address], [address], 3 17:18:40 insulin, serum 2022 023 [facility] (Lab), [address] [place] [address], [address], 3 12:45:10 T4, free, serum 2022 023 [facility] (Lab), [address] [place] [address], [phone], 3 10:19:39 TSH, serum or plasma 2022 023 [facility] (Lab), [address] [place] [address], [address], 3 10:19:39 Referral None recorded. Procedures None recorded. Surgeries None recorded. Imaging None recorded. Medication Orders cyanocobala min (vit B-12) 1,000 mcg/mL injection solution 2022 023 [facility] [place], [address], 3 16:25:43 cyanocobala min (vit B-12) 1,000 mcg/mL injection solution [address] [facility] [place], [address], 3 21:05:21 Patient TargetsNo targets recorded. Patient InstructionsNo instructions recorded. Reason for Referral None Reported. Results Created Date Observation Date Name Description Value Unit Range Abnormal Flag Note LastModifiedBy Organization Detail LastModifiedTime Result Notes None recorded. Problems Name Problem SNOMED Code Status Onset Date Resolution Date Notes Provider Name and Address Organization Details Recorded Time Hypoglycemia 032126570 Active 2018 Not Available [facility] 3 08:20:45 Prediabetes 779959991 Active 2022 Meche Sandhu MD [address], [address] , [facility] 3 17:15:13 Vitamin B12 deficiency (non anemic) 87853482 Active 2022 Meche Sandhu MD [address], [address] , [facility] 3 17:15:27 Problem Notes None recorded. Medical [...] Available No t Available [employer] Keith 2 Navarro USE DIRECTED active Not Available Not Available No t Available Vitals Date Recorded Body weight Body temperature Respiratory rate Body mass index (BMI) Body height Heart rate Systolic blood pressure Diastolic blood pressure Provider Name and Address Organization Details Last Updated DateTime 3 61901.5 6 g 97.8 [degF] 18 /min 27.7 kg/m2 182.88 cm 62 /min 120 mm[Hg] 76 mm[Hg] MORE Alaniz [facility] [employer] [facility] 3 16:53:34 Date Recorded Body height Body mass index (BMI) Body weight Body temperature Respiratory rate Heart rate Systolic blood pressure Diastolic blood pressure Provider Name and Address Organization Details Last Updated DateTime 3 182.88 cm 26.7 kg/m2 77352.7 g 97.8 [degF] 12 /min 68 /min 134 mm[Hg] 83 mm[Hg] Kate Wilhelm RN [facility] [employer] [facility] 3 16:04:36 Social History None recorded. Functional Status None recorded. Mental Status None recorded. Family History Nothing Reported. Medical History No medical history recorded. Past Encounters Encounter ID Performer Location Encounter Start Date Encounter Closed Date Diagnosis/Indication Diagnosis SNOMED-CT Code Diagnosis ICD10 Code Diagnosis Note [id number] Meche Sandhu MD [facility] [place] [address] [place] [address] 04/19/2023 16:37:38 04/19/2023 17:20:08 Prediabetes 398244279 R73.03 a1c of 5.7%- patient has less hypoglycem ia but does continue to have hypoglycem ia in lathe hand on occasion if he eats simple sugars prior to bedtime or if he doesn't have high protein intake. He did not like metformin as it did cause peripheral neuropathy . He would like avoid pharmacoth erapy at this time. recommende d glucose support/na tural insulin ski binding fitter and repairer s to help regulate glucose metabolism . Discussed carb counting and how to read food labels. Recommende d patient to utilize the diabetesfo DietBetter.Escapeer.com from the ADA website to help with food preparatio n as this presents ideal carb content per meal so this will make carb counting much easier for patient. Recommende d he incorporat e natural insulin ski binding fitter and repairer s such as pears, apples, cinnamon, herve and sweet potatoes to help mobilize his endogenous insulin. Recommende d up to 150 minutes of moderate level activity/e xercise weekly. Vitamin B1 2 deficiency (non anemic) 24026287 E53.8 Trial on B12 injections 1000 mcg [...] he chooses to go outside of the [facility] system to obtain labwork he was [...] in his case. He voiced understand ing. [id number] Meche Sandhu MD [facility] [place] [address] [place] [address] 08/14/2023 15:45:31 08/14/2023 16:38:15 Prediabetes 835843063 R73.03 a1c of 5.6% in range down from 5.7%- patient has less hypoglycem ia but does continue to have hypoglycem ia in lathe hand on occasion. Continue on glucose one support as he didn't do well on metformin. recommende d glucose support/na tural insulin ski binding fitter and repairer s to help regulate glucose metabolism . Recommende d he incorporat e natural insulin ski binding fitter and repairer s such as pears, apples, cinnamon, herve and sweet potatoes to help mobilize his endogenous insulin. Recommende d up to 150 minutes of moderate level activity/e xercise weekly. Avoidance of simple sugars/ref ined sugars and minimize processed foods. Vitamin B1 2 deficiency (non anemic) 76154842 E53.8 Continue on B12 injections 1000 mcg [...] ID Guarantor Name 04/19/2023 1 [place] [id number] Eduar Richardson [id number] Eduar Richardson 08/14/2023 1 [place] [id number] Eduar Richardson [id number] Eduar Richardson Notes Date Note Type Note [...] sugars were in ideal range. He has freeDBi Servicesyle keith sensor- he will get some drops in the 50s. He did have spaghetti/low carb right around He does take B12 1000 mcg once daily. He does drop low after having beer. labs from 01/18:190/60/47/106T SH of 1.730 uIU/mlFT4 of 1.17 ng/dLa1c 5.7%PTH 40.9 pg/MLinsulin 3.7 uU/ml Meche Sandhu MD [address] [facility] [address], [place], [address], [employer] [facility] 04/19/2023 21:08:13 08/14/2023 text/html 58 yo male [...] protein and 2 grams of carbs/equate from [employer]. otherwise sugars running 90 mg/dL up to 120 mg/dL consistently with few lows depending on meal intake. labs from 08/10/23:TSH of 1.080 uIU/mlFT4 of 1.25 ng/dLa1c of 5.6%B12/folate normalinsulin pending Meche Sandhu MD [address] [facility] [address], [place], [address], [facility] 08/14/2023 16:34:02
--- OUTSIDE RECORDS SUMMARY | 2025-01-22 02:22 | XMS_ITS | Continuity of Care Document ---
Author Organization [facility] Address [address] [place] [address] [place] [address] Phone Care Team Providers Care Lamination Technician Name Role Phone Ivan Childress MD Unavailable Unavailable Allergies, Adverse Reactions, Alerts Substance Reaction Status Criticality metronidazole Active No Information Medications Medication Instructions Dosage Effective Dates (start - stop) Status Comments hydrocodone 5 mg-acetaminophen 325 mg tablet take 1 tablet by oral route every 6 hours as needed for pain as needed 1.00 tablet - Active PRN for pain, avoid driving or operate machines Xanax 1 mg tablet take 1 tablet by oral route every 4 - 6 hours as needed 1 MG - Active PRN for anxiety, avoid driving or operate machines omeprazole 20 [...] Providers Copied on Encounter OFFICE/OUTPA TIENT VISIT, [facility], [address] [place], [place], [address], [phone] [facility] anxiety1 (chief complaint) pain (chief complaint) HLP (chief complaint) Barrett1 (chief complaint) anemia1 (chief complaint) dumping1 (chief complaint) Mixed hyperlipidemiaHyper glycemiaIron deficiency anemiaElevated prostate specific antigen [PSA]Generalized anxiety disorderDumping syndromeChronic pain syndromeBarrett's esophagus without dysplasia 5 [address] Love. [address] [place], [address] , . tel:[phone] OFFICE/OUTPA TIENT VISIT, [facility], [address] [place], [place], [address], tel:[phone] [facility] anxiety1 (chief complaint) pain (chief complaint) dumping1 (chief complaint) anemia1 (chief complaint) Chronic pain syndromeDumping syndromeGeneralized anxiety disorderAnemiaEleva hussain prostate specific antigen [PSA] 5 [address] Love. [address], [place], [place], [address] , [place]. tel:[phone] OFFICE/OUTPA TIENT VISIT, [facility], [address], [place], [place], [address], [place] tel:[phone] [facility] Barrett1 (chief complaint) anxiety1 (chief complaint) pain (chief complaint) dumping1 (chief complaint) Chronic pain syndromeGeneralized anxiety disorderBarrett's esophagus without dysplasiaDumping syndrome 4 [address] Love. [address], [place], [place], [address] , [place]. tel:[phone] OFFICE/OUTPA TIENT VISIT, [facility], [address] [place], [address], [place] tel:[phone] [facility] anxiety1 (chief complaint) pain (chief complaint) glucose1 (chief complaint) Chronic pain syndromeGeneralized anxiety disorderDumping syndromeHypoglycemi a 4 [address] Love. [address], [place], [place], [address] , [place]. tel:[phone] OFFICE/OUTPA TIENT VISIT, [facility], [address] [place], [address], [place] tel:[phone] [facility] pain (chief complaint) anxiety1 (chief complaint) Chronic pain syndromeGeneralized anxiety disorder 4 [address] Love. [address], [place], [place], [address] , [place]. tel:[phone] OFFICE/OUTPA TIENT VISIT, [facility], [address] [place], [address], [place] tel:[phone] [facility] pain (chief complaint) pain (chief complaint) Barrett1 (chief complaint) PSA (chief complaint) anemia1 (chief complaint) AnemiaBarrett's esophagus without dysplasiaChronic pain syndromeElevated prostate specific antigen [PSA]Essential (primary) hypertensionGeneral ized anxiety disorder 4 Childress Ivan. [address], [place], [place], [address] , [place]. tel:[phone] PREV VISIT, EST, AGE 40-64 [facility], [address], [place], [place], [address], [place] tel:[phone] [facility] physical (chief complaint) Encounter for general adult medical exam w abnormal findingsAnemiaEleva hussain prostate specific antigen [PSA]Rahman's esophagus without dysplasiaGeneralize d anxiety disorderChronic pain syndromeEssential (primary) hypertensionHypergl ycemia 4 [address] Love. [address], [place], [place], [address] , [place]. tel:[phone] OFFICE/OUTPA TIENT VISIT, [facility], [address], [place], [place], [address], [place] tel:[phone] [facility] anxiety1 (chief complaint) pain (chief complaint) Chronic pain syndromeGeneralized anxiety disorder 4 [address]. [address], [place], [place], [address] , [place]. tel:[phone] OFFICE/OUTPA TIENT VISIT, [facility], [address], [place], [place], [address], [place] tel:[phone] [facility] Barrett1 (chief complaint) anxiety1 (chief complaint) pain1 (chief complaint) anemia1 (chief complaint) AnemiaBarrett's esophagus without dysplasiaChronic pain syndromeGeneralized anxiety disorderElevated prostate specific antigen [PSA] 4 Childress Ivan. [address], [place], [place], [address] , [place]. tel:[phone] OFFICE/OUTPA TIENT VISIT, [facility], [address], [place], [place], [address], [place] tel:[phone] [facility] back pain1 (chief complaint) anxiety1 (chief complaint) rahman (chief complaint) HTN (chief complaint) anemia1 (chief complaint) Essential (primary) hypertensionBarrett 's esophagus without dysplasiaAnemiaChro jose miguel pain syndromeGeneralized anxiety disorder 3 [address], [place], [place], [address] , [place]. [phone] OFFICE/OUTPA TIENT VISIT, [facility], [address] [place], [address], [place] tel:[phone] [facility] pain (chief complaint) anxiety1 (chief complaint) HTN (chief complaint) Chronic pain syndromeGeneralized anxiety disorderAnemiaEssen tial (primary) hypertension 3 [address], [place], [place], [address] , [place]. [phone] OFFICE/OUTPA TIENT VISIT, [facility], [address] [place], [address], [place] tel:[phone] [facility] Anemia1 (chief complaint) B12 (chief complaint) pain (chief complaint) anxiety1 (chief complaint) glucose1 (chief complaint) AnemiaChronic pain syndromeGeneralized anxiety disorderHyperglycem iaOther specified abnormal findings of blood chemistry 3 [address], [place], [place], [address] , [place]. [phone] OFFICE/OUTPA TIENT VISIT, [facility], [address] [place], [address], [place] tel:[phone] [facility] glucose (chief complaint) anemia1 (chief complaint) pain (chief complaint) anxiety1 (chief complaint) HyperglycemiaAnemia Chronic pain syndromeGeneralized anxiety disorderBarrett's esophagus without dysplasia 3 [address] Horn [address], [place], [place], [address] , [place]. tel:[phone] OFFICE/OUTPA TIENT VISIT, [facility], [address] [place], [address], [place] tel:[phone] [facility] pain (chief complaint) anxiety1 (chief complaint) Chronic pain syndromeGeneralized anxiety disorder 3 [address], [place], [place], [address] , [place]. tel:[phone] PREV VISIT, EST, AGE 40-64 [facility], [address], [place], [place], [address], [place] [phone] [facility] physical (chief complaint) Encounter for general adult medical exam w abnormal findingsBarrett's esophagus without dysplasiaElevated prostate specific antigen [PSA]Generalized anxiety disorderChronic pain syndromePolyp of colonChronic sinusitis 3 [address], [place], [place], [address] , [place]. tel: [phone] OFFICE/OUTPA TIENT VISIT, [facility], [address], [place], [place], [address], [place] tel:[phone] [facility] pSA (chief complaint) sinusitis1 (chief complaint) pain (chief complaint) anxiety1 (chief complaint) Barrett1 (chief complaint) Chronic sinusitisChronic pain syndromeElevated prostate specific antigen [PSA]Generalized anxiety disorderBarrett's esophagus without dysplasia 3 [address] Horn [address], [place], [place], [address] , [place]. tel: [phone] OFFICE/OUTPA TIENT VISIT, EST [facility], [address], [place], [place], [address], [place] tel:[phone] [facility] sinusitis1 (chief complaint) pain (chief complaint) anxiety1 (chief complaint) BPH1 (chief complaint) Chronic pain syndromeChronic sinusitisGeneralize d anxiety disorderElevated prostate specific antigen [PSA] 3 [address], [place], [place], [address] , [place]. tel: [phone] OFFICE/OUTPA TIENT VISIT, EST [facility], [address], [place], [place], [address], [place] tel:[phone] [facility] pain (chief complaint) anxiety1 (chief complaint) sinus1 (chief complaint) Chronic sinusitisChronic pain syndromeGeneralized anxiety disorderCOVID-19 2 [address]. [address], [place], [place], [address] , [place]. tel:[phone] OFFICE/OUTPA TIENT VISIT, [facility], [address], [place], [place], [address], [place] tel:[phone] [facility] Barretts (chief complaint) pain (chief complaint) anxiety1 (chief complaint) sinus1 (chief complaint) Rahman's esophagus without dysplasiaChronic pain syndromeGeneralized anxiety disorderChronic sinusitis 2 [address], [place], [place], [address] , [place]. tel:[phone] OFFICE/OUTPA TIENT VISIT, [facility], [address], [place], [place], [address], [place] tel:[phone] [facility] anxiety1 (chief complaint) back pain1 (chief complaint) sinus1 (chief complaint) PSA (chief complaint) Acute sinusitisChronic pain syndromeGeneralized anxiety disorderElevated prostate specific antigen [PSA] 2 [address], [place], [place], [address] , [place]. tel:[phone] OFFICE/OUTPA TIENT VISIT, [facility], [address], [place], [place], [address], [place] tel:[phone] [facility] pain1 (chief complaint) Other spondylosis, lumbar regionChronic pain syndrome 2 [address], [place], [place], [address] , [place]. tel:[phone] OFFICE/OUTPA TIENT VISIT, [facility], [address], [place], [place], [address], [place] tel:[phone] [facility] pain (chief complaint) PSA (chief complaint) rahman (chief complaint) anxiety1 (chief complaint) Chronic pain syndromeElevated prostate specific antigen [PSA]Generalized anxiety disorderBarrett's esophagus without dysplasia Jan- 0 2 [address] Love. [address], [place], [place], [address] , [place]. tel: [phone] OFFICE/OUTPA TIENT VISIT, EST [facility], [address], [place], [place], [address], [place] tel:[phone] [facility] pain (chief complaint) Chronic pain syndrome Jan- 2 [address] Love. [address], [place], [place], [address] , [place]. tel: [phone] OFFICE/OUTPA TIENT VISIT, EST [facility], [address], [place], [place], [address], [place] tel:[phone] [facility] pain (chief complaint) PSA (chief complaint) Elevated prostate specific antigen [PSA]Chronic pain syndrome 2 [address]. [address], [place], [place], [address] , [place]. tel: [phone] PREV VISIT, EST, AGE 40-64 [facility], [address], [place], [place], [address], [place] tel:[phone] [facility] physical (chief complaint) Encounter for general adult medical exam w abnormal findingsBarrett's esophagus without dysplasiaGeneralize d anxiety disorderChronic pain syndromeElevated prostate specific antigen [PSA] 2 [address] Love. [address], [place], [place], [address] , [place]. tel:[phone] PREV VISIT, EST, AGE 40-64 [facility], [address], [place], [place], [address], [place] tel:[phone] [facility] Medicine physical (chief complaint) Encounter for general adult medical exam w abnormal findingsChronic pain syndromeGeneralized anxiety disorderBarrett's esophagus without dysplasiaElevated prostate specific antigen [PSA] 1 [address], [place], [place], [address] , [place]. tel:[phone] OFFICE/OUTPA TIENT VISIT, [facility], [address], [place], [place], [address], [place] tel:[phone] [facility] feeling weird1 (chief complaint) back pain1 (chief complaint) anxiety1 (chief complaint) Chronic pain syndromeGeneralized anxiety disorderTransient cerebral ischemic attackMalaise 0 [address] Horn [address], [place], [place], [address] , [place]. tel:[phone] OFFICE/OUTPA TIENT VISIT, [facility], [address], [place], [place], [address], [place] tel:[phone] [facility] TIA (chief complaint) TIA1 (chief complaint) back pain1 (chief complaint) anxiety1 (chief complaint) Transient cerebral ischemic attackChronic pain syndromeGeneralized anxiety disorderBarrett's esophagus without dysplasia 0 [address] Horn [address], [place], [place], [address] , [place]. tel:[phone] OFFICE/OUTPA TIENT VISIT, [facility], [address] [place], [address], [place] tel:[phone] [facility] dizziness1 (chief complaint) back pain1 (chief complaint) anxiety1 (chief complaint) Rahman (chief complaint) Dumping syndromeBarrett's esophagus without dysplasiaGeneralize d anxiety disorderChronic pain syndrome 0 [address] Horn [address], [place], [place], [address] , [place]. tel:[phone] Referring Provider: Michael Par[address], [place], [place], [address]. tel:[phone] OFFICE/OUTPA TIENT VISIT, [facility], [address], [place], [place], [address], [place] tel:[phone] [facility] dizziness1 (chief complaint) DizzinessDumping syndromeHypoglycemi a 9 [address] Love. [address], [place], [place], [address] , [place]. tel:[phone] Referring Provider: Ivan Childress, [address], [place], [place], [address]. tel:[phone] OFFICE/OUTPA TIENT VISIT, [facility], [address], [place], [address], [place] tel:[phone] [facility] dizzy1 (chief complaint) DizzinessChronic maxillary sinusitisHeadacheAl tered mental status 9 [address] Love. [address], [place], [place], [address] , [place]. tel:[phone] Referring Provider: Michael Parham [address], [place], [place], [address]. tel:[phone] OFFICE/OUTPA TIENT VISIT, [facility], [address], [place], [place], [address], [place] tel:[phone] [facility] barrett1 (chief complaint) spacy1 (chief complaint) chronic pain1 (chief complaint) Rahman's esophagus without dysplasiaChronic pain syndromeGeneralized anxiety disorderDizziness 9 [address] Love. [address], [place], [place], [address] , [place]. tel:[phone] Referring Provider: Ivan Childress [address], [place], [place], [address]. tel:[phone] OFFICE/OUTPA TIENT VISIT, [facility], [address], [place], [place], [address], [place] tel:[phone] [facility] Rahman (chief complaint) anxiety1 (chief complaint) back pain1 (chief complaint) PSA (chief complaint) sick1 (chief complaint) Generalized anxiety disorderPolyp of colonBarrett's esophagus without dysplasiaChronic pain syndromeDizzinessEl evated prostate specific antigen [PSA] 9 [address]. [address], [place], [place], [address] , [place]. [phone] Referring Provider: Michael Parham [address], [place], [place], [address]. tel:[phone] OFFICE/OUTPA TIENT VISIT, EST [facility], [address], [place], [place], [address], [place] tel:[phone] [facility] GERD1 (chief complaint) Anxiety1 (chief complaint) back pain1 (chief complaint) urine1 (chief complaint) Polyp of colonBarrett's esophagus without dysplasiaGeneralize d anxiety disorderChronic pain syndromeAbnormal finding in urine 9 [address] Horn [address], [place], [place], [address] , [place]. tel:[phone] Referring Provider: Michael Parham [address], [place], [place], [address]. tel:[phone] PREV VISIT, EST, AGE 40-64 [facility], [address], [place], [place], [address], [place] tel:[phone] [facility] PHysical (chief complaint) Encounter for general adult medical exam w abnormal findingsPolyp of colonChronic pain syndromeGeneralized anxiety disorderGERD w/ esophagitis 9 [address], [place], [place], [address] , [place]. [phone] Referring Provider: Michael Parham [address], [place], [place], [address]. tel:[phone] OFFICE/OUTPA TIENT VISIT, EST [facility], [address], [place], [place], [address], [place] tel:[phone] [facility] GERd1 (chief complaint) anxiety1 (chief complaint) back pain1 (chief complaint) BPH1 (chief complaint) Generalized anxiety disorderChronic pain syndromeBarrett's esophagus without dysplasiaElevated prostate specific antigen [PSA]Polyp of colon 8 [address] Love. [address], [place], [place], [address] , [place]. [phone] Referring Provider: Michael Parham [address], [place], [place], [address]. tel:[phone] OFFICE/OUTPA TIENT VISIT, EST [facility], [address], [place], [place], [address], [place] [phone] [facility] Barrett1 (chief complaint) back pain1 (chief complaint) anxiety1 (chief complaint) Rahman's esophagus without dysplasiaPolyp of colonChronic pain syndromeGeneralized anxiety disorderElevated prostate specific antigen [PSA] 8 [address] Love. [address], [place], [place], [address] , [place]. tel:[phone] Referring Provider: Michael Parham [address], [place], [place], [address]. tel:[phone] OFFICE/OUTPA TIENT VISIT, [facility], [address], [place], [place], [address], [place] tel:[phone] [facility] GERD1 (chief complaint) back pain1 (chief complaint) anxiety1 (chief complaint) PSA (chief complaint) Rahman's esophagus without dysplasiaGeneralize d anxiety disorderChronic pain syndromeElevated prostate specific antigen [PSA] 8 [address], [place], [place], [address] , [place]. tel:[phone] Referring Provider: Michael Parham [address], [place], [place], [address]. tel:[phone] PREV VISIT, EST, AGE 40-64 [facility], [address], [place], [place], [address], [place] tel:[phone] [facility] PHysical (chief complaint) Encounter for general adult medical exam w abnormal findingsChronic pain syndromeGeneralized Anxiety DisorderBarrett's esophagus without dysplasia Jan-0 8 [address] Horn [address], [place], [place], [address] , [place]. tel:[phone] Referring Provider: Michael Parham [address], [place], [place], [address]. tel:[phone] OFFICE/OUTPA TIENT VISIT, [facility], [address], [place], [place], [address], [place] tel:[phone] [facility] back pain1 (chief complaint) anxizety1 (chief complaint) Chronic pain syndromeGeneralized Anxiety Disorder Oct- 7 [address], [place], [place], [address] , [place]. [phone] Referring Provider: Michael Parham [address], [place], [place], [address]. tel:[phone] OFFICE/OUTPA TIENT VISIT, [facility], [address], [place], [place], [address], [place] tel:[phone] [facility] back apin1 (chief complaint) anxiety1 (chief complaint) Rahman (chief complaint) Chronic pain syndromeGeneralized anxiety disorderBarrett's esophagus without dysplasia Sep- 7 [address], [place], [place], [address] , [place]. [phone] Referring Provider: Michael Parham [address], [place], [place], [address]. tel:[phone] OFFICE/OUTPA TIENT VISIT, [facility], [address], [place], [place], [address], [place] tel:[phone] [facility] back pain1 (chief complaint) anxiety1 (chief complaint) hep c (chief complaint) Chronic pain syndromeGeneralized Anxiety DisorderEncounter for screening for other viral diseases 7 [address], [place], [place], [address] , [place]. tel:[phone] Referring Provider: Michael Parham [address], [place], [place], [address]. tel:[phone] OFFICE/OUTPA TIENT VISIT, EST [facility], [address], [place], [place], [address], [place] [phone] [facility] GERD1 (chief complaint) back pain1 (chief complaint) anxiety1 (chief complaint) colon polyp (chief complaint) Rahman's esophagus without dysplasiaGeneralize d Anxiety DisorderLow back painPolyp of colon 7 [address] Love. [address], [place], [place], [address] , [place]. tel:[phone] Referring Provider: Michael Parham [address], [place], [place], [address]. tel:[phone] PREV VISIT, EST, AGE 40-64 [facility], [address], [place], [place], [address], [place] [phone] [facility] Physical (chief complaint) Encounter for general adult medical exam w abnormal findingsElevated prostate specific antigen [PSA]Rahman's esophagus without dysplasiaGeneralize d Anxiety Disorder 7 [address]. [address], [place], [place], [address] , [place]. [phone] Referring Provider: Michael Parham [address], [place], [place], [address]. tel:[phone] OFFICE/OUTPA TIENT VISIT, EST [facility], [address], [place], [place], [address], [place] [phone] [facility] GERD1 (chief complaint) back apin1 (chief complaint) anxiety1 (chief complaint) GERD w/ esophagitisEnteroco litis due to C diffLow back painGeneralized Anxiety Disorder 6 [address] Love. [address], [place], [place], [address] , [place]. tel:[phone] Referring Provider: [address], [place], [place], [address]. tel:[phone] OFFICE/OUTPA TIENT VISIT, [facility], [address], [place], [place], [address], [place] tel:[phone] [facility] C, diff (chief complaint) back pain1 (chief complaint) Pseudomembraneous colitisNeuropathyDr ug-induced polyneuropathy 6 [address] Love. [address], [place], [place], [address] , [place]. [phone] Referring Provider: Michael Parham [address], [place], [place], [address]. tel:[phone] OFFICE/OUTPA TIENT VISIT, [facility], [address], [place], [place], [address], [place] tel:[phone] [facility] Rahman (chief complaint) back apin (chief complaint) anxiety1 (chief complaint) Rahman's esophagus without dysplasiaLow back painGeneralized Anxiety DisorderElevated prostate specific antigen [PSA] 6 [address] Love. [address], [place], [place], [address] , [place]. [phone] Referring Provider: Michael Parham [address], [place], [place], [address]. tel:[phone] PREV VISIT, EST, AGE 40-64 [facility], [address], [place], [place], [address], [place] tel:[phone] [facility] PHysical (chief complaint) Encounter for general adult medical exam w abnormal findingsGeneralized anxiety disorderElevated PSAGERD without esophagitis 6 [address] Love. [address], [place], [place], [address] , [place]. [phone] Referring Provider: Michael Parham [address], [place], [place], [id number]. tel:[phone] OFFICE/OUTPA TIENT VISIT, [facility], [address], [place], [place], [address], [place] tel:[phone] [facility] lumbago1 (chief complaint) anxiety1 (chief complaint) GERD1 (chief complaint) Dietary surveillance and counselingGERD without esophagitisOther spondylosis, lumbar regionGeneralized Anxiety DisorderElevated PSA [address], [place], [place], [address] , [place]. [phone] Referring Provider: Ivan Childress, [address], [place], [place], [address]. tel:[phone] OFFICE/OUTPA TIENT VISIT, [facility], [address], [place], [place], [address], [place] tel:[phone] [facility] back pain (chief complaint) GERD (chief complaint) anxiety (chief complaint) LumbagoGeneralized anxiety disorderEsophageal refluxElevated prostate specific antigen [PSA] 5 [address], [place], [place], [address] , [place]. [phone] Referring Provider: Michael Parham [address], [place], [place], [address]. tel:[phone] OFFICE/OUTPA TIENT VISIT, [facility], [address], [place], [place], [address], [place] tel:[phone] [facility] PSA (chief complaint) vitamin D (chief complaint) anxiety (chief complaint) back pain (chief complaint) GERD (chief complaint) GERDUnspecified vitamin d deficiencyGeneraliz ed anxiety disorderLumbagoDiet wilman surveillance and counseling [address], [place], [place], [address] , [place]. [phone] Referring Provider: Michael Parham [address], [place], [place], [address]. tel:[phone] PREV VISIT, EST, AGE 40-64 [facility], [address], [place], [place], [address], [place] tel:[phone] [facility] Medicine Physical (chief complaint) Routine Medical ExamLumbagoElevated prostate specific antigen (psa)GERDRoutine Medical Exam [address], [place], [place], [address] , [place]. tel:[phone] Referring Provider: Michael Par[address], [place], [place], [address]. tel:[phone] OFFICE/OUTPA TIENT VISIT, [facility], [address], [place], [place], [address], [place] tel:[phone] [facility] back pain (chief complaint) anxiety (chief complaint) PSA (chief complaint) LumbagoGeneralized anxiety disorderFamily history of malignant neoplasm of prostate 4 [address], [place], [place], [address] , [place]. tel:[phone] Referring Provider: Michael Par[address], [place], [place], [address]. tel:[phone] OFFICE/OUTPA TIENT VISIT, [facility], [address], [place], [place], [address], [place] tel:[phone] [facility] back pain (chief complaint) anxiety (chief complaint) HTN (chief complaint) Dietary surveillance and counselingGeneraliz ed anxiety disorderLumbagoHype rtension, UnspecifiedElevated prostate specific antigen (psa) Apr-0 [address], [place], [address] , [place]. tel:[phone] Referring Provider: Michael Par[address], [place], [place], [address]. tel:[phone] OFFICE/OUTPA TIENT VISIT, [facility], [address], [place], [place], [address], [place] tel:[phone] [facility] back pain (chief complaint) anxiety (chief complaint) elevated PSA (chief complaint) Dietary surveillance and counselingGeneraliz ed anxiety disorderElevated prostate specific antigen (psa)Lumbago [address], [place], [address] , [place]. [phone] Referring Provider: Mihcael Parham [address], [place], [place], [address]. tel:[phone] PREV VISIT, EST, AGE 40-64 [facility], [address], [place], [place], [address], [place] [phone] [facility] Physical (chief complaint) Dietary surveillance and counselingRoutine Medical ExamLumbagoGenerali zed anxiety disorderRoutine Medical Exam [address], [place], [place], [address] , [place]. [phone] Referring Provider: Michael Par[address], [place], [address]. tel:[phone] OFFICE/OUTPA TIENT VISIT, EST [facility], [address] [place], [address], [place] [phone] [facility] back pain (chief complaint) anxiety (chief complaint) Dietary surveillance and counselingHypertens ion, UnspecifiedLumbagoG eneralized anxiety disorderElevated prostate specific antigen (psa) [address], [place], [place], [address] , [place]. [phone] Family History Family Member Type Diagnosis Age At Onset Mother Problem (finding) Alive and well Sister Problem (finding) Alive and well Father Problem (finding) Cancer, prostate 62 Payers Payer name Insurance type Covered libertarian ID Authorjanenea tiharish(s) [facility] CI [id number] Social History Type Description Quantity Date Captured [...] Dizziness) ordered Referral Referred To: Roselyn Alejandro [id number] [facility]
[address] [place], [place] [id number] Ordered: Referrals: Allopathic & Osteopathic Physicians : Internal Medicine : Endocrinology, Diabetes & Metabolism. Roselyn Alejandro. Evaluate and treat ordered Referral Ordered: UPPER GI W/ KUB ordered Referral Referred To: Mara Juan MD [address] [facility]
[place], [address] Ordered: Referrals: Mara Juan MD. 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 He had some viral infection symptoms several weeks ago and he stopped the acarbose due to overall feeling sick. Pt states that he recovered fully but he has not restated the acarbose again anxiety1 Pt has chronic a nxiety. Pt [...] Pt needs refilled pain Pt has chronic a nxiety. Pt [...] denies any bleeding pain Pt has chronic l ow back pain due to DDD. Pt denies any loss of bowel or bladder control or saddle area paresthesia. Pt takes norco PRN for pain and doing ok. Pt denies any leg neuropathy Barrett1 Pt has rahman kip keith .Pt takes omeprazole and doing ok Pt [...] his bp is around 130/80 at home Anemia1 Pt has mild anem ia. pt [...] PRN and doing ok Pt needs refilled glucose1 Pt has borderlin e high glucose Pt denies any polyuria, polydipsia pt had repeat glucose which was normal as well as his a1c glucose Pt has glucose. Pt denies any polyuria, polydipsia. anemia1 Pt is mildly ane milagros. Pt denies any blood loss. Pt denies any fatigue or dizziness pain Pt has chronic l ow back [...] saddle area paresthesia.. Pt needs norco refilled. sinus1 Pt has chronic s inus congestion with [...] PRN and doing ok Pt needs refilled sinus1 Pt c/o persisten t sinus congestion, postnasal drainage for several months .Pt denies any cough .Pt denies any sore throat or dysphagia Pt denies any fever or sob. Pt denies any sick contact. Pt is fully vaccinated for COVID anxiety1 Pt has chronic a nxiety Pt denies any depression or any suicidal or homicidal thought .Pt denies any crying spells. Pt takes xanax PRn and doing ok back pain1 Pt has chronic l ow [...] as well and was told level stable pain1 Pt has persisten t low back pain Pt denies any worsening pain Pt denies any loss of bladder control. Pt failed NSAID and ultram. Pt takes norco PRN for pain and doing ok Pt denies any sciatica or any saddle area paresthesia. 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 PSA Pt has elevated [...] all his previous vague complaints resolved completely back pain1 Pt has persisten t low back pain Pt denies any worsening pain Pt denies any loss of bladder control. Pt failed NSAID and ultram. 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 Patient denies any suicidal or homicidal thoughts. Patient denies any crying spells. Patient takes Xanax PRN and doing okay. feeling weird1 Pt states that h e [...] see any neurologist .Pt needs FMLA form TIA Pertinent negati ves include bladder incontinence, gait disturbance, headache and memory impairment. Additional information: pt had EGD and colonoscopy recently and he was told he has no rahman . Pt has gastritis and he told me colonoscopy was ok. Pt is on omeprazole. dizziness1 Pt c/o feeling h ot flush and redness around face and fatigue post food and sometimes symptoms occur 2-3 hours post meal and his glucose usually is around 80s. Pt denies chest pain or headache Pt states that meal with carb tends to make it worse Pt saw the desk director who tested his A1c was 5.9 and [...] doing ok with norco and xanax PRn Rahman Pt has rahman e sophagus and also colon polyp Pt still has not made gregorio with Dr. Valdez Pt takes omeprazole and doing ok Pt denies any Gi bleeding anxiety1 Pt has chronic a nxiety Pt denies any depression or any suicidal thought Pt denies any crying spells back pain1 Pt has chronic l ow back pain Pt denies any worsening pain Pt denies any loss of bladder control PSA Pt has intermitt ent elevation of PSA Pt denies any urinary symptoms Pt sees urology PT never had biopsy Pt had negative prostate exam by finger sick1 Pt feels dizzine ss, numbness of [...] he notices puffiness around his eyes also GERD1 Pt has rahman e sophagus with tubular adenoma. Pt is on omeprazole webster pt failed zantac pt has daily GERD without omeprazole. pt still has not set up EGd and colonoscopy yet urine1 Pt notices malod ors urine, yellow color urine for the past two weeks pt denies any urinary frequency and urgency. Pt denies any dysuria, pt denies any flank pain. pt has not tried any new meds or any flank pain Anxiety1 Pt has chronic a nxiety pt [...] GI issue. Pt denies any other complaints GERd1 Pt has rahman e sophagus. pt takes omeprazole. Pt was given phone number for Dr. Valdez but he has not contact him yet. Pt is noncompliant. Pt doing ok with omeprazole. anxiety1 Pt has chronic a nxiety. Pt denies any depression or any suicidal thought. Pt denies any crying spells. Pt doing ok with xanax PRn back pain1 Pt has chronic l ow back pain Pt has DDD Pt denies any worsening pain. pt denies any loss of bladder control. pt has mild sciatica. Pt failed ultram and NSAID BPH1 Pt has fluctuati ng PSA. Pt is seeing urology. Pt just had normal prostate exam by urology and he had PSA done which was 3.8 last week. Pt denies any urinary symptoms Barrett1 Pt has rahman e racielagus. Pt [...] done EGD yet. Pt denies any symptoms back pain1 Pt has chronic l ow back pain Pt denies any loss of bladder control. Pt denies any wrosening pain Pt has DDD anxiety1 Pt has chronic a nxiety PT deneis any depression or any sucidal thought Pt denies any crying spells Pt takes xanax PRN and doing ok. hep c Pt needs hep C s creening Pt does not use IV drug GERD1 Pt has rahman P t takes [...] Dizziness Weight management Related to Diz ziness Special diet education Related t o Body mass index (BMI) 28.0-28.9, adult Weight management Related to Diz ziness Increase physical activity Relat ed to Dizziness Increase physical activity Relat ed to Rahman's [...] smoking Related to Gener alized anxiety disorder Quit smoking Related to [place] tt's esophagus without dysplasia Special diet education Related t o Body mass index (BMI) 26.0-26.9, adult Prescribed Diet Educ ation/Lifestyle Education Regarding Diet Related to Dietary Surveillance and Counseling Quit smoking Related to Encou nter for general adult medical exam w abnormal findings Prescribed Activity and Exercise Education Related to Dietary Surveillance and Counseling Prescribed Activity and Exercise Education Related to Dietary Surveillance and Counseling Prescribed Diet Educ ation/Lifestyle Education Regarding Diet Related to Dietary Surveillance and Counseling Quit smoking Related to Chron ic pain syndrome Prescribed Diet Educ ation/Lifestyle Education Regarding Diet Related to Dietary Surveillance and Counseling Increase physical activity Relat ed to Chronic pain syndrome Prescribed Activity and Exercise Education Related to Dietary Surveillance and Counseling Quit [...] caloric intake Related to Dietary surveillance counseling Decrease caloric intake Related to Dietary surveillance counseling Dietary counseling Related to Di etary surveillance counseling Assessments Type Assessment Date assessment Mixed hyperlipidemia assessment Hyperglycemia assessment Iron deficiency anemia assessment Elevated prostate specific antig en [PSA] assessment Generalized anxiety disorder Dec assessment Dumping syndrome assessment Chronic pain syndrome assessment Rahman's esophagus without dysp lasia Mental Status Date Cognitive Assessment Orientation - [place] ed to time, place, person, situation.
--- NOTE | 2025-01-22 06:22 | WPDHPUPDATE1 ---
History and Physical Update Update Date/Time: 01/22/25 06:22 History and Physical has been reviewed, including an updated exam of the patient. There are NO changes in the patient's condition. Risks, benefits, and alternatives have been discussed and questions answered. Patient agrees to proceed with procedure.
[2025-01-22] MEDS: LACTATED RINGERS 1,000 ML 30 ML IV CONT (11:15)
[2025-01-22 11:20] LABS: Glucose Point of Care 91 mg/dl (65-105)
--- NOTE | 2025-01-22 11:52 | SUR.PREOP ---
PT UPDATED ON SURGERY TIME
[2025-01-22 12:45] LABS: Glucose Point of Care 77 mg/dl (65-105)
--- NOTE | 2025-01-22 12:51 | WPDANESEPPF ---
Anes - Initial Pre Proc Eval Procedure: Operation Date: 01/22/25 13:00 Proposed Procedures p Cystoscopy, Intraoperative Cystogram Right Retrograde Pyelogram, Right Ureteroscopy Right Stent Placement - Malvin Martines MD Date/Time: 01/22/25 12:51 Surgeon: Malvin Martines MD Pre Op Diagnosis: right hydronephrosis Patient Data Age: 59 Gender: M Height: 1.83 m Weight: 91.4 kg Last Vital Signs Temp 98.1 F 01/22/25 11:00 Pulse 70 01/22/25 11:00 Resp 10 L 01/22/25 11:00 BP 126/75 01/22/25 11:00 Pulse Ox 95 01/22/25 11:00 O2 Del Method Room Air 01/22/25 11:00 Allergies Allergy/AdvReac Type Severity Reaction Status Date / Time No Known Allergies Allergy Unknown Verified 01/22/25 11:20 Home Medications ?Medication ?Instructions ?Recorded ?Confirmed ?Type alprazolam 0.25 mg tablet (Xanax) 0.25 mg PO DAILY 03/05/23 01/22/25 History fluticasone propionate 50 2 - 3 spray intranasal BID #16 mL 03/05/23 01/22/25 Rx mcg/actuation nasal spray,suspension (Flonase Allergy Relief) hydrocodone 5 mg-acetaminophen 325 1 tablet PO Q8H PRN pain 03/05/23 01/22/25 History mg tablet omeprazole 20 mg capsule,delayed 20 mg PO DAILY 03/05/23 01/22/25 History release tamsulosin 0.4 mg capsule (Flomax) 0.4 mg PO DAILY 03/05/23 01/22/25 History aspirin 81 mg tablet,delayed 81 mg PO DAILY 01/20/25 01/22/25 History release (Adult Aspirin Regimen) Laboratory Tests 01/22/25 01/22/25 11:18 12:43 POC Capillary Glucose 91 mg/dl 77 mg/dl (65-105) (65-105) Patient hx anesthesia problems: none Family hx anesthesia problems: none Results Review: All pre-operative results and documents have been reviewed as part of the pre-operative evaluation. [facility] Past Medical History Medical History Chronic, continuous use of opioids H/O testicular mass Paresthesia Surgical History Surgical History H/O inguinal hernia repair Family History Family History Father Cancer Mother Cancer Grandparent Cancer Social History Social History Smoking packs per day: 1 Smoking cigarettes per day: 20.0 Years smoked: 10 Smoking pack-years: 10.00 Smoking status: Former smoker Tobacco type: cigarettes Smoking end date: 01/20/21 Alcohol intake: current Alcohol use details: Social Lack of Transportation: No Lack of Food: Never True Current Housing: I Have Housing Concerned About Future Housing: No Difficulty Paying Gas/Electric Bills: No Difficulty Paying for Meds: No Currently Unemployed: No Education: High School Diploma/GED Difficulty w/ Childcare or Family Care: No Living arrangements: with family Gender identity (if verbalized by the patient): Male Spiritual care concerns: No Anes - Eval Final PreProcedure Day of Procedure 01/22/25 12:51 Patient weight: normal Lungs: normal air movement Airway: Mallampati scale class II Neurological: alert and oriented Last oral intake: >/= 8 hours ASA classification: II Emergent: no Anesthetic plan: proceed Anesthesia type and monitoring: general and standard monitoring Results Review: All pre-operative results and documents have been reviewed as part of the pre-operative evaluation. Overall good health, tendency to hypoglyemia, fsbs/CGM 78 in preop (pt usu 90s). Informed Consent: The patient's anesthetic plan and its attendant risks and benefits were discussed with the patient/family/POA. Questions were solicited and answers provided to the satisfaction of the patient/family/POA.
[2025-01-22] MEDS: ceFAZolin 2 GM/D5W 50 ML 2 GM/50 ML BAG IVPB (13:12)
[2025-01-22] MEDS: LIDOCAINE 2% GEL UROJET 10 ML PKG MUCOUS MEM (13:13)
--- NOTE | 2025-01-22 13:38 | W.PM.PROC2 ---
Procedure Note - Detailed Date of Procedure 01/22/25 Pre-op Diagnosis Right hydronephrosis Post-op Diagnosis Other (1. Right hallie-ureteral diverticulum 2. Right vesicoureteral reflux with marked right hydroureteronephrosis) Procedure Performed Cystoscopy, right retrograde pyelography, intraoperative cystogram Surgeon Malvin Martines MD Anesthesia General Findings 1. Right hallie-ureteral (Hutch) diverticulum with diverticular volume 4x bladder capacity 2. No evidence of right ureteral obstruction 3. Right vesico-ureteral reflux 4. Minimal BPH (calculated 58gm on recent CT scan) Description of Procedure Patient is brought to the operative suite was prepped draped in routine sterile fashion while in dorsal lithotomy position after the uneventful induction of a general anesthetic. Cystoscopy was undertaken with a 21 F rigid cystoscope. He has no urethral strictures and very modest lateral lobe hyperplasia without median lobe enlargement of the prostate. There was early obstruction of the prostatic urethra. His bladder was very distorted, including distortion of the bladder neck, because of this very large right posterior lateral bladder diverticulum. His left ureteral orifice is easily identified but does appear to be very close to the bladder neck. This large diverticulum arises just lateral to the right ureteral orifice and has the appearance of a typical hallie ureteral/Hutch diverticulum. This right ureter is laterally located in the right isak trigone. I was able to place a 0.035 in glidewire in the ureteral orifice advanced to the renal pelvis is a markedly tortuous ureter with marked medial deviation. Retrograde pyelography with a [place] catheter shows no obvious points of obstruction. I did dilate the distal ureter in the event there was slight obstruction at the ureterovesical junction. Intraoperative cystogram after evacuating all retrograde contrast does show right vesicoureteral reflux. Because of absence of apparent ureteral obstruction I opted not to place a ureteral stent. Bladder was drained the patient was taken recovery room good condition. Drains No Packing No Pathology None sent Complications No immediate complications Condition Stable Disposition PACU
[2025-01-22 13:39] LABS: Glucose Point of Care 78 mg/dl (65-105)
[2025-01-22] MEDS: KETOROLAC 30 MG/ML VIAL (*BKC) IV PUSH (14:38)
== END 2025-01-22 15:12 | disposition home or self-care (01) ==
PROVIDERS: PCP Emergency Medicine; Visit Provider Urology
PROC: (CPT 52352; principal; 2025-01-22 13:00)
DX: N13.30 Unspecified hydronephrosis (principal); N32.3 Diverticulum of bladder; N13.70 Vesicoureteral-reflux, unspecified; Z79.899 Other long term (current) drug therapy; Z87.891 Personal history of nicotine dependence
CPT/HCPCS: 52005; 74420; 82948; C1758; C1769; J0690; J1100; J1885; J2250; J2405; J2704; J3010; J7120; Q9966